=== PATIENT | male | born 1935 | race Asian ===

== ENCOUNTER 2016-11-03 14:31 | Inpatient (IN) | payer MEDICARE, OTHER ==
[~2016-11-03] VITALS: Ht 165.1 cm; Wt 72.6 kg
[~2016-11-03 14:31] MED LIST: AMLO5TAB4 PO; CRES10 PO; ESOM40CA PO; FLUC100T39 PO; ISOS30TA5 PO; METO50TA16 PO; NIT4 SL; OLME40TA14 PO; RANO500T2 PO; TICA90TA PO
[2016-11-03] MEDS ORDERED: SOD CHLORIDE 0.9% 1,000 ML IV STA (15:18)
[2016-11-03 15:35] LABS: BASOPHIL # 0.1 10^3/ul (0.0-0.1); BASOPHILS % 1.1 % (0.0-2.0); EOSINOPHILS # 0.2 10^3/ul (0.0-0.5); EOSINOPHILS % 4.7 % (0.0-7.0); HEMATOCRIT 32.1 % (42.0-52.0); HEMOGLOBIN 11.5 g/dl (14.0-18.0); LYMPHOCYTES # 0.7 10^3/ul (0.8-2.9); LYMPHOCYTES % 14.2 % (15.0-51.0); MEAN CORPUSCULAR HEMOGLOBIN 33.3 pg (29.0-33.0); MEAN CORPUSCULAR HGB CONC 35.8 g/dl (32.0-37.0); MEAN PLATELET VOLUME 9.4 fl (7.4-10.4); MONOCYTE # 0.5 10^3/ul (0.3-0.9); MONOCYTES % 11.6 % (0.0-11.0); NEUTROPHIL # 3.2 10^3/ul (1.6-7.5); PLATELET COUNT 205 10^3/UL (140-415); RED BLOOD COUNT 3.45 10^6/ul (4.70-6.10); RED CELL DISTRIBUTION WIDTH 14.3 % (11.5-14.5); WHITE BLOOD COUNT 4.6 10^3/ul (4.8-10.8)
[2016-11-03 15:52] LABS: INR 1.12; PARTIAL THROMBOPLASTIN TIME 28.3 Sec (25.0-35.0); PROTIME 14.4 Sec (12.2-14.2); PT RATIO 1.1
--- NOTE | 2016-11-03 15:52 | RADRPT ---
PROCEDURE: XR Chest. CLINICAL INDICATION: Shortness of breath. Syncope TECHNIQUE: A single portable view of the chest was obtained. COMPARISON: 11/02/2015 FINDINGS: A prior median sternotomy is again seen. The aortic knob is unfolded. The aorta is tortuous and ath erosclerotic. The cardiomediastinal silhouette is otherwise within normal limits. Ill-defined opaci ty in the right lower lung zone is once again seen and is unchanged. The remaining lungs and pleural spaces are clear. The soft tissues and osseous structures demonstrate benign age related senescent changes. IMPRESSION: 1. Stable ill-defined opacity in the right lower lung zone. 2. Otherwise, no acute cardiopulmonary disease. RPTAT: HPNM Physician Ashutosh Date Time Electronically viewed and signed by Isra Hdz Physician on 11/03/2016 15:51 /
[2016-11-03 15:56] LABS: ANION GAP 16 (8-16); BLOOD UREA NITROGEN 33 mg/dl (7-20); CARBON DIOXIDE 25 mmol/L (21-31); CHLORIDE 94 mmol/L (97-110); CREATININE 1.25 mg/dl (0.61-1.24); GLUCOSE 114 mg/dl (70-220); SODIUM 129 mmol/L (135-144)
[2016-11-03 15:58] LABS: POTASSIUM 5.7 mmol/L (3.5-5.1)
[2016-11-03 16:13] LABS: TROPONIN-I < 0.012 ng/ml (0.00-0.12)
--- NOTE | 2016-11-03 16:16 | RADRPT ---
PROCEDURE: CT Head without. CLINICAL INDICATION: Syncope. TECHNIQUE: The study was performed utilizing a multi-slice, multidetector CT scanner. Direct spira l 1 mm axial sections were obtained through the head without the use of intravenous contrast materia l. 1 or more of the following dose reduction techniques were utilized: Automated exposure control, adjustment of the mA and/or kV according to patient's size, iterative reconstruction technique. Co blanca and sagittal reformations were obtained. The images were reviewed on a PACS workstation. RADIATION DOSE: CTDIvol: 44.1 mGyDLP: 720.2 mGy-cm COMPARISON: No prior studies are available for comparison. FINDINGS: There is no intracranial hemorrhage, extra-axial fluid collection, mass lesion, midline shift or hyd rocephalus. There are benign calcifications in the bilateral basal ganglia. There is mild to moder ate prominence of the cerebral sulci, lateral and third ventricles. There is mild to moderate periv entricular and subcortical white matter hypodensity. There is mild arteriosclerotic calcification o f the parasellar internal carotid arteries. The montero-white matter differentiation is preserved. Th e basal cisterns are patent. The midline structures are intact. The orbits, calvarium and extracra nial soft tissues are normal in appearance. The visualized paranasal sinuses, mastoid air cells and middle ear cavities are normally aerated. IMPRESSION: 1. No acute intracranial abnormality. No intracranial hemorrhage, extra-axial fluid collection, ma ss lesion or hydrocephalous. 2. Mild to moderate peripheral and central cerebral volume loss. 3. 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 RPTAT: HGAS .Manuel Mcclendon MD, MD Date Time Electronically viewed and signed by .Manuel Mcclendon MD, MD on 11/03/2016 16:15 .S/
[2016-11-03] MEDS ORDERED: ALBUTEROL 0.5% (NEB) 2.5 MG/0.5 ML AMP INH STA (16:28)
[2016-11-03] MEDS ORDERED: INSULIN REGULAR, HUMAN 100 UNIT/1 ML 3ML VIAL IV STA (16:28)
[2016-11-03] MEDS ORDERED: FUROSEMIDE 40 MG INJ IV STA (16:28)
[2016-11-03] MEDS ORDERED: NA POLYST SULFON 15 GM/60 ML BTL PO STA (16:28)
[2016-11-03] MEDS ORDERED: DEXTROSE 50% 50 ML SYRINGE IV PRN (16:30)
[2016-11-03] MEDS ORDERED: OLME40TA14 PO (17:09)
[2016-11-03] MEDS ORDERED: TICA90TA PO (17:12)
[2016-11-03] MEDS ORDERED: METO25TA7 PO (17:14)
[2016-11-03] MEDS ORDERED: ASPI81TA50 PO (17:16)
[2016-11-03] MEDS ORDERED: ISOS30TA5 PO (17:16)
[2016-11-03] MEDS ORDERED: HYDR12.58 PO (17:18)
[2016-11-03] MEDS ORDERED: FER325 PO (17:18)
[2016-11-03] MEDS ORDERED: VITA400C15 PO (17:19)
[2016-11-03] MEDS ORDERED: CHOL200073 PO (17:20)
[2016-11-03] MEDS ORDERED: CALC-686 PO (17:21)
[2016-11-03] MEDS ORDERED: OMEG100016 PO (17:23)
[2016-11-03] MEDS ORDERED: ASC500 PO (17:24)
[2016-11-03] MEDS ORDERED: MULT-861 PO (17:28)
[2016-11-03] MEDS ORDERED: ACETAMINOPHEN 325 MG TAB PO PRN ×2 (17:30→19:00)
[2016-11-03] MEDS ORDERED: ONDANSETRON 4 MG INJ IV PRN ×2 (17:30→19:00)
--- NOTE | 2016-11-03 18:32 | ERA ---
ER Documentation Chief Complaint Date/Time DATE: 11/03/16 TIME: 18:15 Chief Complaint dizziness since 1030 and states he had a syncopal episode at 1040 HPI 80-year-old male with a history of coronary artery disease status post NM, CABG , stents presenting after a syncopal episode that happened around 10:40 AM today. He states that he was feeling dizzy, got out of bed, and had a syncopal episode where he completely lost consciousness. He does state that he hit the back of his head. He denies any associated chest pain, shortness of breath, palpitations, or preceding headache. Currently he denies any new headache. He has no vision disturbance or dizziness at rest. He has no chest pain or shortness of breath at this time either. His primary care doctor is Dr. Hopkins. His horticultural agent is Dr. Cee. He was here 1 year ago for similar symptoms. ROS All systems reviewed and are negative except as per history of present illness. Medications Home Meds Reported Medications Multivits,Ca,Min/Iron/FA/Lycop (Centrum Men's Tablet) 1 Each Tablet, 1 EACH PO DAILY, TAB 11/03/16 Ascorbic Acid (Vitamin C) 500 Mg Tab, 500 MG PO DAILY, TAB 11/03/16 Auburn-3 Fatty Acids (Auburn-3) 1,000 Mg Capsule, 1000 MG PO DAILY, CAP 11/03/16 Calcium Carbonate/Vitamin D3 (Calcium 500 mg Chewable Tablet) 1 Each Tab.chew, 1 EACH PO DAILY, TAB.CHEW 11/03/16 Cholecalciferol (Vitamin D3) (VITAMIN D-3) 2,000 Unit Capsule, 2000 UNIT PO DAILY, CAP 11/03/16 Vitamin E* (Vitamin E*) 400 Unit Capsule, 400 UNIT PO DAILY, CAP 11/03/16 Ferrous Sulfate* (Ferrous Sulfate*) 325 Mg Tabec, 325 MG PO DAILY, TAB 11/03/16 Hydrochlorothiazide* (Hydrochlorothiazide*) 12.5 Mg Tablet, 12.5 MG PO DAILY, # 30 TAB 11/03/16 Aspirin (Aspir-Low) 81 Mg Tablet.dr, 81 MG PO DAILY 11/03/16 Isosorbide Mononitrate* (Isosorbide Mononitrate*) 30 Mg Tab.er.24h, 30 MG PO DAILY, TAB 11/03/16 Metoprolol Succinate* (Toprol XL*) 25 Mg Tab.sr.24h, 25 MG PO DAILY, #30 TAB CHECK IF SBP TOO HIGH TAKE 50MG DAILY 11/03/16 Ticagrelor* (Brilinta*) 90 Mg Tablet, 90 MG PO Q12, TAB BUT AT 11/02/16-MD CHANGED ON 60MG-BID(NOT STARTED) 11/03/16 Olmesartan Medoxomil (Benicar) 40 Mg Tablet, 40 MG PO DAILY, #30 TAB BUT AT 11/02/16-MD CHANGED ON 20MG-BID(NOT STARTED) 11/03/16 Nitroglycerin* (Nitrostat*) 0.4 Mg Tab.subl, 0.4 MG SL Q5MIN Y for CHEST PAIN, BOTTLE 11/02/15 Esomeprazole Mag Trihydrate (Nexium) 40 Mg Capsule.dr, 40 MG PO DAILY, #30 CAP 11/02/15 Rosuvastatin Calcium* (Crestor*) 10 Mg Tablet, 10 MG PO QHS, #30 TAB 11/02/15 Ranolazine* (Ranexa*) 500 Mg Tab.sr.12h, 500 MG PO Q12, TAB 11/02/15 Amlodipine Besylate* (Norvasc*) 5 Mg Tablet, 5 MG PO DAILY, TAB CHECK IF BPS NOT TOO HIGH TAKE 1/2TAB-(2.5MG) DAILY 11/02/15 Discontinued Reported Medications Fluconazole* (Fluconazole*) 100 Mg Tablet, 100 MG PO DAILY, TAB 11/03/15 Olmesartan Medoxomil (Benicar) 40 Mg Tablet, 40 MG PO DAILY, #30 TAB 11/02/15 Metoprolol Succinate* (Toprol XL*) 50 Mg Tab.er.24h, 50 MG PO DAILY, #30 TAB 11/02/15 Discontinued Scripts Ticagrelor* (Brilinta*) 90 Mg Tablet, 90 MG PO BID for 30 Days, #90 TAB Prov:ANGUS FRASER MD 11/07/15 Isosorbide Mononitrate* (Isosorbide Mononitrate*) 30 Mg Tab.er.24h, 30 MG PO DAILY for 30 Days, #30 Prov:ANGUS FRASER MD 11/07/15 Allergies Allergies: Coded Allergies: No Known Allergy (Verified , 11/03/16) PMhx/Soc History of Surgery: Yes Anesthesia Reaction: No Hx Neurological Disorder: No Hx Respiratory Disorders: No Hx Cardiac Disorders: Yes (Heart attack 2000 Bypass Sx 1999, stents 2006) Hx Psychiatric Problems: No Hx Miscellaneous Medical Probl: No Hx Alcohol Use: No Hx Substance Use: No Hx Tobacco Use: No Smoking Status: Never smoker FmHx Family History: No diabetes Physical Exam Vitals Vital Signs Date Time Temp Pulse Resp B/P Pulse Ox O2 Delivery O2 Flow Rate FiO2 11/03/16 20:11 97.2 74 18 91/49 98 Room Air 11/03/16 18:20 97.6 84 20 121/71 99 Room Air 11/03/16 17:09 75 20 100 21 11/03/16 15:51 65 108/57 69 102/55 67 97/58 11/03/16 15:45 87 20 102/55 99 Room Air 11/03/16 14:34 97.6 68 20 107/55 98 Physical Exam Const: Well-appearing, pleasant, no apparent distress, nontoxic Head: Atraumatic, no scalp hematomas or skull depression palpated Eyes: Normal Conjunctiva, PERRLA, EOMI ENT: Normal External Ears, Nose and Mouth. Neck: Full range of motion..~ No meningismus. No C-spine tenderness Resp: Clear to auscultation bilaterally Cardio: Sternotomy scar noted. Regular rate and rhythm, no murmurs. 2+ distal pulses Abd: Soft, non tender, non distended. Normal bowel sounds Skin: No petechiae or rashes Back: No midline or flank tenderness Ext: No cyanosis, or edema Neur: Awake and alert and oriented 3, cranial nerves intact, strength and sensations intact in all 4 extremities Psych: Normal Mood and Affect Result Diagram: 11/03/16 1525 11/03/16 1525 Results 24 hrs Laboratory Tests Test 11/03/16 15:25 11/03/16 16:47 11/03/16 17:20 White Blood Count 4.610^3/ul Red Blood Count 3.4510^6/ul Hemoglobin 11.5g/dl Hematocrit 32.1% Mean Corpuscular Volume 93.0fl Mean Corpuscular Hemoglobin 33.3pg Mean Corpuscular Hemoglobin Concent 35.8g/dl Red Cell Distribution Width 14.3% Platelet Count 52426^3/UL Mean Platelet Volume 9.4fl Neutrophils % 68.0% Lymphocytes % 14.2% Monocytes % 11.6% Eosinophils % 4.7% Basophils % 1.1% Nucleated Red Blood Cells % 0.0/100WBC Neutrophils # 3.210^3/ul Lymphocytes # 0.710^3/ul Monocytes # 0.510^3/ul Eosinophils # 0.210^3/ul Basophils # 0.110^3/ul Nucleated Red Blood Cells # 0.010^3/ul Prothrombin Time 14.4Sec Prothrombin Time Ratio 1.1 INR International Normalized Ratio 1.12 Activated Partial Thromboplast Time 28.3Sec Sodium Level 129mmol/L Potassium Level 5.7mmol/L Chloride Level 94mmol/L Carbon Dioxide Level 25mmol/L Anion Gap 16 Blood Urea Nitrogen 33mg/dl Creatinine 1.25mg/dl Glucose Level 114mg/dl Calcium Level 9.0mg/dl Troponin I < 0.012ng/ml Bedside Glucose 104mg/dL 161mg/dL Current Medications Medications (Trade) Dose Ordered Sig/Tanya Route PRN Reason Start Time Stop Time Status Last Admin Dose Admin Sodium Chloride (NS) 1,000 ml @ 1,000 mls/hr Q1H STAT IV 11/03/16 15:18 11/03/16 16:17 DC 11/03/16 16:40 Furosemide (Lasix) 40 mg ONCE STAT IV 11/03/16 16:28 11/03/16 16:30 DC 11/03/16 16:43 Sodium Polystyrene Sulfonate (Kayexalate) 30 gm ONCE STAT PO 11/03/16 16:28 11/03/16 16:30 DC 11/03/16 16:43 Albuterol (Proventil 0.5% (Neb)) 15 mg ONCE STAT INH 11/03/16 16:28 11/03/16 16:30 DC 11/03/16 17:09 Insulin Human Regular (Humulin R) 10 unit ONCE STAT IV 11/03/16 16:28 11/03/16 16:30 DC 11/03/16 16:52 Dextrose (D50w Syringe) ONCE PRN IV POC BLOOD GLUCOSE <250 MG/DL 11/03/16 16:30 11/03/16 16:44 Ondansetron HCl (Zofran Inj) 4 mg ER BRIDGE PRN IV NAUSEA AND/OR VOMITING 11/03/16 17:30 11/04/16 17:29 Acetaminophen (Tylenol Tab) 650 mg ER BRIDGE PRN PO MILD PAIN/FEVER 11/03/16 17:30 11/04/16 17:29 Aspirin (Halfprin) 81 mg DAILY PO 11/04/16 09:00 Cholecalciferol (Vitamin D) 2,000 unit DAILY PO 11/04/16 09:00 UNV Ferrous Sulfate (Ferrous Sulfate (Ec)) 325 mg DAILY PO 11/04/16 09:00 Isosorbide Mononitrate (Imdur) 30 mg DAILY PO 11/04/16 09:00 UNV Metoprolol Succinate (Toprol Xl) 25 mg DAILY PO 11/04/16 09:00 Nitroglycerin (Nitroglycerin (Sl Tab) 0.4 Mg) 0.4 tab [id number] PRN SL CHEST PAIN 11/03/16 19:00 Ranolazine (Ranexa) 500 mg Q12 PO 11/03/16 21:00 UNV Ticagrelor (Brilinta) 90 mg Q12 PO 11/03/16 21:00 UNV Vitamin E (Vitamin E) 400 units DAILY PO 11/04/16 09:00 UNV IV Flush (NS 3 ml) 3 ml PER PROTOCOL IV 11/03/16 19:00 Ondansetron HCl (Zofran Inj) 4 mg Q6H PRN IV NAUSEA AND/OR VOMITING 11/03/16 19:00 Acetaminophen (Tylenol Tab) 650 mg Q6H PRN PO PAIN LEVEL 1-3 OR FEVER 11/03/16 19:00 Acetaminophen (Tylenol Supp) 650 mg Q6H PRN DE PAIN LEVEL 1-3 OR FEVER 11/03/16 19:00 Docusate Sodium (Colace) 100 mg Q12H PRN PO CONSTIPATION 11/03/16 19:00 Magnesium Hydroxide (Milk Of Mag) 30 ml DAILY PRN PO CONSTIPATION 11/03/16 19:00 Bisacodyl (Dulcolax) 5 mg DAILY PRN PO CONSTIPATION 11/03/16 19:00 Pantoprazole 40 mg 40 mg DAILY@06 IV 11/04/16 06:00 Sodium Chloride (NS) 1,000 ml @ 50 mls/hr Q20H IV 11/03/16 19:00 11/03/16 19:26 Procedures/MDM EMERGENT LABS AND DIAGNOSTIC STUDIES: Lab Results above were reviewed and interpreted by me. CBC: Mild anemia BMP: Hyponatremia, hyperkalemia, elevated BUN and creatinine consistent with prerenal azotemia Troponin within normal limits UA: Pending 12-lead EKG was interpreted by Tyrel Kurtz MD: Normal Sinus Rhythm Right bundle branch block, old inferior infarct No acute ST or T wave changes suggestive of acute ischemia or STEMI. Radiology Results as interpreted by Radiology below were reviewed by Mariaa Kurtz MD: Chest x-ray: IMPRESSION: 1. Stable ill-defined opacity in the right lower lung zone. 2. Otherwise, no acute cardiopulmonary disease. Physician Ashutosh Date Time Electronically viewed and signed by Physician Ashutosh on 11/03/2016 15 :51 CT head shows no acute abnormalities Initial Nursing notes reviewed. Previous Medical Records requested via the Electronic Health Record. EMERGENCY DEPARTMENT COURSE / MEDICAL DECISION MAKING: Patient presenting after a syncopal episode. His labs are consistent with prerenal azotemia but he also has hyperkalemia. His hyperkalemia was treated with insulin, glucose, albuterol, Kayexalate and Lasix. 1 L of IV fluids were started. No arrhythmias seen on his EKG. However I cannot rule out a significant intermittent arrhythmia, acute coronary syndrome. patient's syncopal symptoms are unstable at this time and require inpatient workup. No evidence of PE or dissection at this time but occult ischemia or fatal dysrhythmia cannot be ruled out. Critical Care Time: 35 minutes Treatments/Evaluations: Close monitoring and treatment of unstable vital signs, cardiorespiratory, and neurologic status, while maintaining tight balance of fluid, respiratory, and cardiac interventions. This time includes discussing the case with the patient and the patients family. This time does not include all procedures stated elsewhere in this record. This time also includes reviewing old records, labs and radiological studies. This time includes examining and re-examining the patient. Additionally, this time also includes arranging care with admitting and consulting physicians. Accepting Care Team: Current data and ongoing care discussed. Time: Time of admission Primary Provider: Spoke with Sandeep, requested admission to Dr. Jj Reed Consulting: none Outstanding Data: none Departure Diagnosis: Primary Impression: Syncope and collapse Additional Impressions: Blunt head injury Qualified Code: S09.8XXA - Blunt head injury, initial encounter Acute renal failure Qualified Code: N17.9 - Acute renal failure, unspecified acute renal failure type Hyperkalemia Hyponatremia Condition: Serious SAVANNAH KURTZ MD Nov 03, 2016 18:26
--- NOTE | 2016-11-03 18:38 | QN ---
Documentation Comment [id number] DIRK SIMMONS MD Nov 03, 2016 18:38
[2016-11-03] MEDS ORDERED: NITROGLYCERIN (SL) 0.4 MG TAB SL PRN (19:00)
[2016-11-03] MEDS ORDERED: MAGNESIUM HYDROXIDE 30ML CUP PO PRN (19:00)
[2016-11-03] MEDS ORDERED: DOCUSATE SODIUM 100 MG CAP PO PRN (19:00)
[2016-11-03] MEDS ORDERED: NACL 0.9% 3 ML SYG IV SCH (19:00)
[2016-11-03] MEDS ORDERED: BISACODYL (EC) 5 MG TAB PO PRN (19:00)
[2016-11-03] MEDS ORDERED: ACETAMINOPHEN 650 MG SUPP PR PRN (19:00)
[2016-11-03] MEDS: SOD CHLORIDE 0.9% 1,000 ML IV SCH (19:26)
[2016-11-03 20:00] VITALS: BP 112/56; RESP 15
[2016-11-03 20:11] VITALS: TEMP 97.2
[2016-11-03 20:27] LABS: CREATINE KINASE 217 IU/L (23-200)
[2016-11-03 20:44] LABS: CK-MB 3.42 ng/ml (0.0-2.4); TROPONIN-I < 0.012 ng/ml (0.00-0.12)
[2016-11-03 20:45] VITALS: PULSE 68
[2016-11-03 20:58] VITALS: Ht 165.1 cm; Wt 72.6 kg
[2016-11-03] MEDS: RANOLAZINE (SR) 500 MG TAB PO SCH (21:00)
[2016-11-03] MEDS: TICAGRELOR 90 MG TABLET PO SCH (21:57)
[2016-11-04] VITALS (14 sets, daily range): BP systolic 91–138; BP diastolic 52–69; PULSE 58–70; RESP 15–19
[2016-11-04 01:21] LABS: CREATINE KINASE 176 IU/L (23-200)
[2016-11-04 01:38] LABS: CK-MB 2.59 ng/ml (0.0-2.4); TROPONIN-I < 0.012 ng/ml (0.00-0.12)
[2016-11-04] MEDS: PANTOPRAZOLE 40 MG INJ IV SCH (05:56)
[2016-11-04 07:06] LABS: BASOPHILS % 0.6 % (0.0-2.0); EOSINOPHILS # 0.2 10^3/ul (0.0-0.5); EOSINOPHILS % 3.3 % (0.0-7.0); HEMATOCRIT 33.4 % (42.0-52.0); HEMOGLOBIN 11.7 g/dl (14.0-18.0); LYMPHOCYTES # 0.8 10^3/ul (0.8-2.9); LYMPHOCYTES % 12.5 % (15.0-51.0); MEAN CORPUSCULAR HEMOGLOBIN 32.2 pg (29.0-33.0); MEAN PLATELET VOLUME 10.2 fl (7.4-10.4); MONOCYTE # 0.6 10^3/ul (0.3-0.9); MONOCYTES % 8.5 % (0.0-11.0); PLATELET COUNT 221 10^3/UL (140-415); RED BLOOD COUNT 3.63 10^6/ul (4.70-6.10); WHITE BLOOD COUNT 6.7 10^3/ul (4.8-10.8)
[2016-11-04 07:26] LABS: CHOL/HDL RATIO 2.2 RATIO
[2016-11-04 07:27] LABS: ALBUMIN/GLOBULIN RATIO 1.33; BILIRUBIN,INDIRECT 0.4 mg/dl (0-1.1); BILIRUBIN,TOTAL 0.4 mg/dl (0.2-1.3); CALCIUM 8.8 mg/dl (8.4-10.2); CREATININE 0.86 mg/dl (0.61-1.24); POTASSIUM 4.2 mmol/L (3.5-5.1)
[2016-11-04] MEDS: RANOLAZINE (SR) 500 MG TAB PO SCH ×2 (10:12→20:54)
[2016-11-04] MEDS: VITAMIN E 400 UNITS CAP PO SCH (10:12)
[2016-11-04] MEDS: FERROUS SULFATE (EC) 325 MG TAB PO SCH (10:12)
[2016-11-04] MEDS: CHOLECALCIFEROL 2,000 UNIT CAP PO SCH (10:12)
[2016-11-04] MEDS: ASPIRIN (EC) 81 MG TAB PO SCH (10:12)
[2016-11-04] MEDS: METOPROLOL (XL) 25 MG TAB PO SCH (10:13)
[2016-11-04] MEDS: ISOSORBIDE MONONITRATE(SR)30 MG TAB PO SCH (10:13)
[2016-11-04] MEDS: TICAGRELOR 90 MG TABLET PO SCH ×2 (10:19→20:57)
--- NOTE | 2016-11-04 10:55 | PN ---
Date/Time of Note Date/Time of Note DATE: 11/04/16 TIME: 10:52 Assessment/Plan VTE Prophylaxis VTE Prophylaxis Intervention: SCD's Lines/Catheters IV Catheter Type (from Nrs): Peripheral IV Urinary Cath still in place: No Assessment/Plan Chief Complaint/Hosp Course 1. Syncope 2. S/p fall with loss of conciseness. 3. Hypertension, controlled 4. Hyperlipidemia 5. S/p heart [id number] and stent placement Problems: Assessment/Plan 1. Dr Cee for cardiology consult 2. US carotid 3. Thyroid work up Subjective 24 Hr Interval Summary Constitutional: improved, no complaints Exam/Review of Systems Vital Signs Vitals Vital Signs Date Time Temp Pulse Resp B/P Pulse Ox O2 Delivery O2 Flow Rate FiO2 11/04/16 08:23 63 11/04/16 08:02 98.0 16 123/64 96 11/03/16 20:11 Room Air 11/03/16 17:09 21 Intake and Output 11/03/16 11/03/16 11/04/16 15:00 23:00 07:00 Intake Total 511 ml Output Total 600 ml Balance -89 ml Exam Constitutional: alert, oriented ENMT: nl external ears & nose, other (left carotid bruit) Neck: supple Respiratory: clear to auscultation Cardiovascular: regular rate and rhythm Gastrointestinal: soft Results Result Diagram: 11/04/16 0605 11/04/16 0605 Results 24 hrs Laboratory Tests Test 11/03/16 15:25 11/03/16 16:47 11/03/16 17:20 11/03/16 19:55 White Blood Count 4.6 #L Red Blood Count 3.45 #L Hemoglobin 11.5 L Hematocrit 32.1 #L Mean Corpuscular Volume 93.0 Mean Corpuscular Hemoglobin 33.3 H Mean Corpuscular Hemoglobin Concent 35.8 Red Cell Distribution Width 14.3 Platelet Count 205 Mean Platelet Volume 9.4 # Neutrophils % 68.0 Lymphocytes % 14.2 L Monocytes % 11.6 H Eosinophils % 4.7 Basophils % 1.1 Nucleated Red Blood Cells % 0.0 Neutrophils # 3.2 Lymphocytes # 0.7 L Monocytes # 0.5 Eosinophils # 0.2 Basophils # 0.1 Nucleated Red Blood Cells # 0.0 Prothrombin Time 14.4 H Prothrombin Time Ratio 1.1 INR International Normalized Ratio 1.12 Activated Partial Thromboplast Time 28.3 Sodium Level 129 L Potassium Level 5.7 H Chloride Level 94 L Carbon Dioxide Level 25 Anion Gap 16 Blood Urea Nitrogen 33 H Creatinine 1.25 H Glucose Level 114 Calcium Level 9.0 Troponin I < 0.012 < 0.012 Bedside Glucose 104 161 Creatine Kinase 217 H Creatine Kinase Index 1.6 Creatinine Kinase MB (Mass) 3.42 H Test 11/04/16 00:45 11/04/16 06:05 Creatine Kinase 176 Creatine Kinase Index 1.5 Creatinine Kinase MB (Mass) 2.59 H Troponin I < 0.012 White Blood Count 6.7 # Red Blood Count 3.63 L Hemoglobin 11.7 L Hematocrit 33.4 L Mean Corpuscular Volume 92.0 Mean Corpuscular Hemoglobin 32.2 Mean Corpuscular Hemoglobin Concent 35.0 Red Cell Distribution Width 14.0 Platelet Count 221 Mean Platelet Volume 10.2 Neutrophils % 75.0 Lymphocytes % 12.5 L Monocytes % 8.5 Eosinophils % 3.3 Basophils % 0.6 Nucleated Red Blood Cells % 0.0 Neutrophils # 5.0 Lymphocytes # 0.8 Monocytes # 0.6 Eosinophils # 0.2 Basophils # 0.0 Nucleated Red Blood Cells # 0.0 Sodium Level 136 Potassium Level 4.2 Chloride Level 96 L Carbon Dioxide Level 29 Anion Gap 15 Blood Urea Nitrogen 22 #H Creatinine 0.86 Glucose Level 97 Calcium Level 8.8 Total Bilirubin 0.4 Direct Bilirubin 0.00 Indirect Bilirubin 0.4 Aspartate Amino Transf (AST/SGOT) 34 Alanine Aminotransferase (ALT/SGPT) 40 Alkaline Phosphatase 39 L Total Protein 7.0 Albumin 4.0 Globulin 3.00 Albumin/Globulin Ratio 1.33 Triglycerides Level 46 Cholesterol Level 110 LDL Cholesterol, Calculated 52 HDL Cholesterol 49 Cholesterol/HDL Ratio 2.2 Thyroid Stimulating Hormone (TSH) Pending Medications Medications Current Medications Dextrose (D50w Syringe) ONCE PRN IV POC BLOOD GLUCOSE <250 MG/DL Last administered on 11/03/16 16:44; Admin Dose 50 ML; Start 11/03/16 at 16:30 Aspirin (Halfprin) 81 mg DAILY PO Last administered on 11/04/16 10:12; Admin Dose 81 MG; Start 11/04/16 at 09:00 Cholecalciferol (Vitamin D) 2,000 unit DAILY PO Last administered on 11/04/16 10:12; Admin Dose 2,000 UNIT; Start 11/04/16 at 09:00 Ferrous Sulfate (Ferrous Sulfate (Ec)) 325 mg DAILY PO Last administered on 10:12; Admin Dose 325 MG; Start 11/04/16 at 09:00 Isosorbide Mononitrate (Imdur) 30 mg DAILY PO Last administered on 11/04/16 10 :13; Admin Dose 30 MG; Start 11/04/16 at 09:00 Metoprolol Succinate (Toprol Xl) 25 mg DAILY PO Last administered on 11/04/16 10:13; Admin Dose 25 MG; Start 11/04/16 at 09:00 Nitroglycerin (Nitroglycerin (Sl Tab) 0.4 Mg) 0.4 tab [id number] PRN SL CHEST PAIN; Start 11/03/16 at 19:00 Ranolazine (Ranexa) 500 mg Q12 PO Last administered on 11/04/16 10:12; Admin Dose 500 MG; Start 11/03/16 at 21:00 Ticagrelor (Brilinta) 90 mg Q12 PO Last administered on 11/04/16 10:19; Admin Dose 90 MG; Start 11/03/16 at 21:00 Vitamin E (Vitamin E) 400 units DAILY PO Last administered on 11/04/16 10:12; Admin Dose 400 UNITS; Start 11/04/16 at 09:00 Ondansetron HCl (Zofran Inj) 4 mg Q6H PRN IV NAUSEA AND/OR VOMITING; Start at 19:00 Acetaminophen (Tylenol Tab) 650 mg Q6H PRN PO PAIN LEVEL 1-3 OR FEVER; Start at 19:00 Acetaminophen (Tylenol Supp) 650 mg Q6H PRN [place] PAIN LEVEL 1-3 OR FEVER; Start 11/03/16 at 19:00 Docusate Sodium (Colace) 100 mg Q12H PRN PO CONSTIPATION; Start 11/03/16 at 19: 00 Magnesium Hydroxide (Milk Of Mag) 30 ml DAILY PRN PO CONSTIPATION; Start at 19:00 Bisacodyl (Dulcolax) 5 mg DAILY PRN PO CONSTIPATION; Start 11/03/16 at 19:00 Pantoprazole 40 mg 40 mg DAILY@06 IV Last administered on 11/04/16 05:56; Admin Dose 40 MG; Start 11/04/16 at 06:00 Sodium Chloride (NS) 1,000 ml @ 50 mls/hr Q20H IV Last administered on 19:26; Admin Dose 50 MLS/HR; Start 11/03/16 at 19:00 USAMA BORJA Nov 04, 2016 10:55
--- NOTE | 2016-11-04 13:05 | RADRPT ---
PROCEDURE: US Abdomen and Retroperitoneum. CLINICAL INDICATION: Abdominal pain. TECHNIQUE: Multiple real-time longitudinal and transverse images were acquired of the patient's ab domen and retroperitoneum utilizing a curved array transducer. COMPARISON: No prior studies are available for comparison. FINDINGS: The liver is normal in size and normal in echogenicity. The liver has a normal smooth surface. Ther e is no focal hepatic lesion. Color Doppler and pulsed Doppler sonography demonstrate normal antegra de flow in the portal vein. Gallstones are present in the gallbladder. There is no gallbladder wall thickening or fluid around the gallbladder. The bile ducts are normal with the common bile duct measuring 6.5 mm in diameter. The spleen is normal in size. There is no focal splenic lesion. The pancreas is partially seen and is unremarkable. There is no free fluid. The right kidney measures 11.7 x 4.9 cm and the left kidney measures 11.0 x 5 point a cm. There is no renal mass. There is no hydronephrosis or calculus. The abdominal aorta is not dilated. The inferior vena cava is unremarkable. IMPRESSION: 1. Gallstones in the gallbladder. No evidence of cholecystitis. 2. Otherwise normal ultrasound of the abdomen and retroperitoneum. RPTAT: QQ .Jorge Frank MD, Date Time Electronically viewed and signed by .Jorge Frank MD, on 11/04/2016 13:04 .R/
--- NOTE | 2016-11-04 13:38 | CONS ---
DATE OF ADMISSION: 11/03/2016 DATE OF CONSULTATION: 11/04/2016 REASON FOR CONSULTATION: Syncope. HISTORY OF PRESENT ILLNESS: Mr. Menchaca is a 80-year-old gentleman, a patient of Dr. Cee, who comes to the hospital now for evaluation of a syncopal episode. The patient was seen by Dr. Cee two days prior. Apparently he was hypotensive, according to the patient. His beta-kaye dose was reduced. The patient had a syncopal episode while walking the day prior with trauma. The patient has right bundle branch block on his ECG with borderline first-degree AV block. He said he has had syncopal episodes prior. It is possible beta-blockers are related. For now, we will continue to keep the patient in telemetry. He is going to have a 2D echo to assess ejection fraction. I think it might be reasonable to risk stratify patient with a stress test to rule out scar or there might be consideration for pacemaker placement unless otherwise etiology is ascertained. For now, conservative therapy is expected. We will continue to optimize the patient's fluid status and risk stratify him as noted. PAST MEDICAL HISTORY: 1. History of hypertension. 2. Dyslipidemia. 3. History of coronary artery disease. 4. History of CABG. 5. History of prior stenting. 6. Syncopal episodes about a year ago. 7. History of erratic blood pressure. ALLERGIES: NO KNOWN DRUG ALLERGIES. SOCIAL HISTORY: The patient does not smoke, does not drink, does not use drugs FAMILY HISTORY: Negative for sudden cardiac or premature coronary artery disease. MEDICATION: 1. Aspirin 81 mg daily. 2. Vitamin D. 3. Isosorbide mononitrate 30 mg p.o. once a day. 4. Metoprolol 25 mg two times a day. 5. Long-acting Ranexa 500 mg twice a day. 6. Nitroglycerin. 7. Docusate bisacodyl. REVIEW OF SYSTEMS: GENERAL: No fever or chills. Syncope as described. HEENT: No issues. CARDIAC: No chest pain, orthopnea. RESPIRATORY: No shortness of breath. GASTROINTESTINAL: No nausea or vomiting. GENITOURINARY: No hematuria or dysuria. . NEUROLOGICAL: No issues reviewed. PSYCHIATRIC: No known history of psychiatric disease. LABORATORY: White blood count 6.7, hemoglobin 11.7, platelets 221. INR is 1.2. Sodium 136, potassium 4.2, BUN 22. Troponin is negative at 0.012. CK-MB is slightly elevated to 2.59. ASSESSMENT AND PLAN:: 1. Syncope. Syncopal episodes are still unexplained. For now, continue patient on telemetry. Had some pauses up to 1.7 seconds. Also right bundle branch block. Conservative care is . Decrease his beta-kaye dose for now. 2. History of coronary artery disease. The patient has history of coronary artery disease. The patient's troponin is negative but CK-MB is slightly elevated. Will likely stratify the patient with a stress test while he is here in the hospital. 3. Hypertension. Blood pressure well controlled. Continue medical therapy as needed. 4. Dyslipidemia. Will continue patient on Crestor. 5. Right bundle branch block now with syncope. Continue 24- hour monitoring. At least 2D echo to follow. Thank you Dr. Reed for referring this patient for my evaluation. Dictated By: Zhen Valenzuela MD /angel/stalin /Document#: [id number]
[2016-11-04] MEDS: SOD CHLORIDE 0.9% 1,000 ML IV SCH (15:08)
--- NOTE | 2016-11-04 15:59 | RADRPT ---
PROCEDURE: US Carotids. CLINICAL INDICATION: bruit , syncope TECHNIQUE: Multiple sonographic of the carotid bifurcation region and vertebral arteries were obta ined utilizing montero scale, duplex and color-flow imaging. The images were reviewed on a PACS worksta tion. COMPARISON: 11/04/2015 FINDINGS: Evaluation of the right carotid bifurcation region reveals mild calcific atherosclerotic disease. Evaluation of the left carotid bifurcation region reveals no significant calcific atherosclerotic di sease. There is antegrade flow within the vertebral arteries bilaterally. RIGHT CAROTID MEASUREMENTS: Common Carotid [id number] (cm/sec) Internal Carotid Artery - gakwddpi82.2 (cm/sec) Internal Carotid Artery - mid60.4 (cm/sec) Internal Carotid Artery - tvhtah00.9 (cm/sec) Internal Carotid/Common Carotid0.57 LEFT CAROTID MEASUREMENTS: Common Carotid [id number] (cm/sec) Internal Carotid Artery - infcfsdy27.9 (cm/sec) Internal Carotid Artery - mid55.8 (cm/sec) Internal Carotid Artery - kfaome26.6 (cm/sec) Internal Carotid/Common Carotid0.81 RPTAT: AA IMPRESSION: No evidence for hemodynamically significant stenosis in the bilateral internal carotid arteries - va lidated velocity measurements with angiographic measurements, velocity criteria are extrapolated fro m diameter data as defined by the Society of Radiologists in Ultrasound Consensus Conference Radiolo gy 2003; 229;340-346. This study does indirectly reference the measurement of the distal ICA diamet er as the denominator for stenosis measurement. Normal antegrade flow in the vertebral arteries bilaterally. .Dc Fernando MD, MD Date Time Electronically viewed and signed by .Dc Fernando MD, on 11/04/2016 15:59 .S/
--- NOTE | 2016-11-04 17:29 | CONS ---
Date/Time of Note Date/Time of Note DATE: 11/04/16 TIME: 17:21 Assessment/Plan Assessment/Plan Chief Complaint/Hosp Course ASOx3, fluent speech, CN II-XII intact perrl 2-1, motor int, sensory diminished vibration in toes, coord OK. Blandon hallpike maneuver (-), except lightheadedness when briskly sat up, DTR 2+ absent ankle jerks, no babinski A/P S/p orthostatic dizziness and syncope. Dehydration. Card on case. Distal symmetrical polyneuropathy. Orthostatic vitals. Cont current treatment Problems: Consultation Date/Type/Reason Admit Date/Time Nov 03, 2016 at 17:22 Type of Consultation: neurology Reason for Consultation syncope, dizziness Hx of Present Illness 80 y/o male with CAD, HTN chronic usually orthostatic dizziness for several years, was admitted after orthostatic syncope at home, fell, hit his head. No pain now. Found to be dehydrated. Similar syncope 1 year ago, that time had VT Constitutional: improved, no complaints ENT: no complaints Respiratory: no complaints Cardiovascular: lightheadedness Gastrointestinal: no complaints Genitourinary: no complaints Psychological: no complaints Past Medical History Medical History: coronary artery disease, high cholesterol, hypertension Past Surgical History Past Surgical Hx: angioplasty, coronary bypass surgery Social History Alcohol Use: none Smoking Status: Never smoker Drug Use: none Exam/Review of Systems Vital Signs Vitals Vital Signs Date Time Temp Pulse Resp B/P Pulse Ox O2 Delivery O2 Flow Rate FiO2 11/04/16 16:18 61 11/04/16 15:36 98.6 19 99/58 98 11/03/16 20:11 Room Air 11/03/16 17:09 21 Intake and Output 11/03/16 11/03/16 11/04/16 15:00 23:00 07:00 Intake Total 511 ml Output Total 600 ml Balance -89 ml Exam Constitutional: alert, oriented, well developed Head: atraumatic, normocephalic Neck: non-tender, supple Respiratory: clear to auscultation Cardiovascular: nl pulses, regular rate and rhythm Gastrointestinal: soft Musculoskeletal: nl extremities to inspection Results Result Diagram: 11/04/16 0605 11/04/16 0605 Results 24 hrs Laboratory Tests Test 11/03/16 19:55 11/04/16 00:45 11/04/16 06:05 Creatine Kinase 217 H 176 Creatine Kinase Index 1.6 1.5 Creatinine Kinase MB (Mass) 3.42 H 2.59 H Troponin I < 0.012 < 0.012 White Blood Count 6.7 # Red Blood Count 3.63 L Hemoglobin 11.7 L Hematocrit 33.4 L Mean Corpuscular Volume 92.0 Mean Corpuscular Hemoglobin 32.2 Mean Corpuscular Hemoglobin Concent 35.0 Red Cell Distribution Width 14.0 Platelet Count 221 Mean Platelet Volume 10.2 Neutrophils % 75.0 Lymphocytes % 12.5 L Monocytes % 8.5 Eosinophils % 3.3 Basophils % 0.6 Nucleated Red Blood Cells % 0.0 Neutrophils # 5.0 Lymphocytes # 0.8 Monocytes # 0.6 Eosinophils # 0.2 Basophils # 0.0 Nucleated Red Blood Cells # 0.0 Sodium Level 136 Potassium Level 4.2 Chloride Level 96 L Carbon Dioxide Level 29 Anion Gap 15 Blood Urea Nitrogen 22 #H Creatinine 0.86 Glucose Level 97 Calcium Level 8.8 Total Bilirubin 0.4 Direct Bilirubin 0.00 Indirect Bilirubin 0.4 Aspartate Amino Transf (AST/SGOT) 34 Alanine Aminotransferase (ALT/SGPT) 40 Alkaline Phosphatase 39 L Total Protein 7.0 Albumin 4.0 Globulin 3.00 Albumin/Globulin Ratio 1.33 Triglycerides Level 46 Cholesterol Level 110 LDL Cholesterol, Calculated 52 HDL Cholesterol 49 Cholesterol/HDL Ratio 2.2 Thyroid Stimulating Hormone (TSH) Pending Medications Medications Current Medications Dextrose (D50w Syringe) ONCE PRN IV POC BLOOD GLUCOSE <250 MG/DL Last administered on 11/03/16 16:44; Admin Dose 50 ML; Start 11/03/16 at 16:30 Aspirin (Halfprin) 81 mg DAILY PO Last administered on 11/04/16 10:12; Admin Dose 81 MG; Start 11/04/16 at 09:00 Cholecalciferol (Vitamin D) 2,000 unit DAILY PO Last administered on 11/04/16 10:12; Admin Dose 2,000 UNIT; Start 11/04/16 at 09:00 Ferrous Sulfate (Ferrous Sulfate (Ec)) 325 mg DAILY PO Last administered on 10:12; Admin Dose 325 MG; Start 11/04/16 at 09:00 Isosorbide Mononitrate (Imdur) 30 mg DAILY PO Last administered on 11/04/16 10 :13; Admin Dose 30 MG; Start 11/04/16 at 09:00 Metoprolol Succinate (Toprol Xl) 25 mg DAILY PO Last administered on 11/04/16 10:13; Admin Dose 25 MG; Start 11/04/16 at 09:00 Nitroglycerin (Nitroglycerin (Sl Tab) 0.4 Mg) 0.4 tab [id number] PRN SL CHEST PAIN; Start 11/03/16 at 19:00 Ranolazine (Ranexa) 500 mg Q12 PO Last administered on 11/04/16 10:12; Admin Dose 500 MG; Start 11/03/16 at 21:00 Ticagrelor (Brilinta) 90 mg Q12 PO Last administered on 11/04/16 10:19; Admin Dose 90 MG; Start 11/03/16 at 21:00 Vitamin E (Vitamin E) 400 units DAILY PO Last administered on 11/04/16 10:12; Admin Dose 400 UNITS; Start 11/04/16 at 09:00 Ondansetron HCl (Zofran Inj) 4 mg Q6H PRN IV NAUSEA AND/OR VOMITING; Start at 19:00 Acetaminophen (Tylenol Tab) 650 mg Q6H PRN [place] PAIN LEVEL 1-3 OR FEVER; Start at 19:00 Acetaminophen (Tylenol Supp) 650 mg Q6H PRN [place] PAIN LEVEL 1-3 OR FEVER; Start 11/03/16 at 19:00 Docusate Sodium (Colace) 100 mg Q12H PRN PO CONSTIPATION; Start 11/03/16 at 19: 00 Magnesium Hydroxide (Milk Of Mag) 30 ml DAILY PRN PO CONSTIPATION; Start at 19:00 Bisacodyl (Dulcolax) 5 mg DAILY PRN PO CONSTIPATION; Start 11/03/16 at 19:00 Pantoprazole 40 mg 40 mg DAILY@06 IV Last administered on 11/04/16 05:56; Admin Dose 40 MG; Start 11/04/16 at 06:00 Sodium Chloride (NS) 1,000 ml @ 50 mls/hr Q20H IV Last administered on 15:08; Admin Dose 50 MLS/HR; Start 11/03/16 at 19:00 ROGER ARANDA MD 29, 2017 17:29
[2016-11-04] MEDS: ATORVASTATIN 40 MG TAB PO SCH (20:54)
[2016-11-04] MEDS ORDERED: TICAGRELOR 90 MG TABLET PO SCH (21:00)
[2016-11-05] VITALS (11 sets, daily range): BP systolic 122–180; BP diastolic 61–91; PULSE 56–75; RESP 19–20
[2016-11-05] MEDS: PANTOPRAZOLE 40 MG INJ IV SCH (05:13)
[2016-11-05 06:07] LABS: BASOPHILS % 0.7 % (0.0-2.0); EOSINOPHILS # 0.4 10^3/ul (0.0-0.5); EOSINOPHILS % 6.5 % (0.0-7.0); HEMOGLOBIN 12.1 g/dl (14.0-18.0); LYMPHOCYTES # 1.1 10^3/ul (0.8-2.9); LYMPHOCYTES % 19.8 % (15.0-51.0); MEAN CORPUSCULAR HEMOGLOBIN 31.8 pg (29.0-33.0); MEAN CORPUSCULAR HGB CONC 34.6 g/dl (32.0-37.0); MEAN CORPUSCULAR VOLUME 91.9 fl (82.0-101.0); MEAN PLATELET VOLUME 9.5 fl (7.4-10.4); MONOCYTE # 0.6 10^3/ul (0.3-0.9); MONOCYTES % 10.4 % (0.0-11.0); NEUTROPHIL # 3.4 10^3/ul (1.6-7.5); NEUTROPHILS % 62.4 % (39.0-77.0); PLATELET COUNT 209 10^3/UL (140-415); RED BLOOD COUNT 3.81 10^6/ul (4.70-6.10); WHITE BLOOD COUNT 5.4 10^3/ul (4.8-10.8)
[2016-11-05 06:34] LABS: ALBUMIN 3.9 g/dl (3.3-4.9); ALBUMIN/GLOBULIN RATIO 1.25; BILIRUBIN,INDIRECT 0.8 mg/dl (0-1.1); BILIRUBIN,TOTAL 0.8 mg/dl (0.2-1.3); CALCIUM 9.2 mg/dl (8.4-10.2); CREATININE 0.8 mg/dl (0.61-1.24); POTASSIUM 4.3 mmol/L (3.5-5.1)
[2016-11-05] MEDS: METOPROLOL (XL) 25 MG TAB PO SCH (09:00)
[2016-11-05] MEDS: CHOLECALCIFEROL 2,000 UNIT CAP PO SCH (09:11)
[2016-11-05] MEDS: ASPIRIN (EC) 81 MG TAB PO SCH (09:11)
[2016-11-05] MEDS: VITAMIN E 400 UNITS CAP PO SCH (09:12)
[2016-11-05] MEDS: FERROUS SULFATE (EC) 325 MG TAB PO SCH (09:12)
[2016-11-05] MEDS: ISOSORBIDE MONONITRATE(SR)30 MG TAB PO SCH (09:12)
[2016-11-05] MEDS: TICAGRELOR 90 MG TABLET PO SCH ×2 (09:22→20:51)
[2016-11-05] MEDS: RANOLAZINE (SR) 500 MG TAB PO SCH ×2 (09:49→20:50)
[2016-11-05] MEDS: SOD CHLORIDE 0.9% 1,000 ML IV SCH (11:00)
--- NOTE | 2016-11-05 12:07 | PN ---
Date/Time of Note Date/Time of Note DATE: 11/05/16 TIME: 12:05 Assessment/Plan VTE Prophylaxis VTE Prophylaxis Intervention: ambulation Lines/Catheters IV Catheter Type (from [facility]): Peripheral IV Urinary Cath still in place: No Assessment/Plan Chief Complaint/Hosp Course 1. Syncope possibly due RBBB 2. S/p fall with loss of conciseness. 3. Hypertension, controlled 4. Hyperlipidemia 5. S/p heart cath 2013 and stent placement 6. CAD 7 Problems: Assessment/Plan 1. Per cardiology 2. Normalization erratic BP 3. Telemonitoring Subjective 24 Hr Interval Summary Constitutional: improved, no complaints Gastrointestinal: no complaints Exam/Review of Systems Vital Signs Vitals Vital Signs Date Time Temp Pulse Resp B/P Pulse Ox O2 Delivery O2 Flow Rate FiO2 11/05/16 11:36 98.0 58 19 159/72 97 11/03/16 20:11 Room Air 11/03/16 17:09 21 Intake and Output 11/04/16 11/04/16 11/05/16 15:00 23:00 07:00 Intake Total 400 ml 950 ml 850 ml Output Total 800 ml Balance 400 ml 950 ml 50 ml Exam Constitutional: alert, oriented Neck: supple Respiratory: clear to auscultation Cardiovascular: regular rate and rhythm Results Result Diagram: 11/05/16 0541 11/05/16 0541 Results 24 hrs Laboratory Tests Test 11/05/16 05:41 White Blood Count 5.4 Red Blood Count 3.81 L Hemoglobin 12.1 L Hematocrit 35.0 L Mean Corpuscular Volume 91.9 Mean Corpuscular Hemoglobin 31.8 Mean Corpuscular Hemoglobin Concent 34.6 Red Cell Distribution Width 14.0 Platelet Count 209 Mean Platelet Volume 9.5 Neutrophils % 62.4 Lymphocytes % 19.8 Monocytes % 10.4 Eosinophils % 6.5 Basophils % 0.7 Nucleated Red Blood Cells % 0.0 Neutrophils # 3.4 Lymphocytes # 1.1 Monocytes # 0.6 Eosinophils # 0.4 Basophils # 0.0 Nucleated Red Blood Cells # 0.0 Sodium Level 134 L Potassium Level 4.3 Chloride Level 95 L Carbon Dioxide Level 27 Anion Gap 16 Blood Urea Nitrogen 13 # Creatinine 0.80 Glucose Level 93 Calcium Level 9.2 Total Bilirubin 0.8 Direct Bilirubin 0.00 Indirect Bilirubin 0.8 Aspartate Amino Transf (AST/SGOT) 32 Alanine Aminotransferase (ALT/SGPT) 43 Alkaline Phosphatase 38 L Total Protein 7.0 Albumin 3.9 Globulin 3.10 Albumin/Globulin Ratio 1.25 Medications Medications Current Medications Dextrose (D50w Syringe) ONCE PRN IV POC BLOOD GLUCOSE <250 MG/DL Last administered on 11/03/16 16:44; Admin Dose 50 ML; Start 11/03/16 at 16:30 Aspirin (Halfprin) 81 mg DAILY PO Last administered on 11/05/16 09:11; Admin Dose 81 MG; Start 11/04/16 at 09:00 Cholecalciferol (Vitamin D) 2,000 unit DAILY PO Last administered on 11/05/16 09:11; Admin Dose 2,000 UNIT; Start 11/04/16 at 09:00 Ferrous Sulfate (Ferrous Sulfate (Ec)) 325 mg DAILY PO Last administered on 09:12; Admin Dose 325 MG; Start 11/04/16 at 09:00 Isosorbide Mononitrate (Imdur) 30 mg DAILY PO Last administered on 11/05/16 09 :12; Admin Dose 30 MG; Start 11/04/16 at 09:00 Metoprolol Succinate (Toprol Xl) 25 mg DAILY PO Last administered on 11/04/16 10:13; Admin Dose 25 MG; Start 11/04/16 at 09:00 Nitroglycerin (Nitroglycerin (Sl Tab) 0.4 Mg) 0.4 tab [id number] PRN SL CHEST PAIN; Start 11/03/16 at 19:00 Ranolazine (Ranexa) 500 mg Q12 PO Last administered on 11/05/16 09:49; Admin Dose 500 MG; Start 11/03/16 at 21:00 Vitamin E (Vitamin E) 400 units DAILY PO Last administered on 11/05/16 09:12; Admin Dose 400 UNITS; Start 11/04/16 at 09:00 Ondansetron HCl (Zofran Inj) 4 mg Q6H PRN IV NAUSEA AND/OR VOMITING; Start at 19:00 Acetaminophen (Tylenol Tab) 650 mg Q6H PRN [place] PAIN LEVEL 1-3 OR FEVER; Start at 19:00 Acetaminophen (Tylenol Supp) 650 mg Q6H PRN [place] PAIN LEVEL 1-3 OR FEVER; Start 11/03/16 at 19:00 Docusate Sodium (Colace) 100 mg Q12H PRN PO CONSTIPATION; Start 11/03/16 at 19: 00 Magnesium Hydroxide (Milk Of Mag) 30 ml DAILY PRN PO CONSTIPATION; Start at 19:00 Bisacodyl (Dulcolax) 5 mg DAILY PRN PO CONSTIPATION; Start 11/03/16 at 19:00 Pantoprazole 40 mg 40 mg DAILY@06 IV Last administered on 11/05/16 05:13; Admin Dose 40 MG; Start 11/04/16 at 06:00 Sodium Chloride (NS) 1,000 ml @ 50 mls/hr Q20H IV Last administered on 15:08; Admin Dose 50 MLS/HR; Start 11/03/16 at 19:00 Atorvastatin Calcium (Lipitor) 40 mg DAILY@21 PO Last administered on 20:54; Admin Dose 40 MG; Start 11/04/16 at 21:00 Ticagrelor (Brilinta) 90 mg BID PO Last administered on 11/05/16 09:22; Admin Dose 90 MG; Start 11/04/16 at 21:00 USAMA BORJA Nov 05, 2016 12:07
--- NOTE | 2016-11-05 16:55 | CONS ---
Date/Time of Note Date/Time of Note DATE: 11/05/16 TIME: 16:52 Assessment/Plan Assessment/Plan Additional Assessment/Plan 1. Syncope - . Syncopal episodes are still unexplained. For now, continue patient on telemetry. Had some pauses up to 1.7 seconds. Also right bundle branch block. Conservative care is ok for now, but I did discuss possibility of pacer with pt. Will await stress test. 2. History of coronary artery disease. The patient has history of coronary artery disease. The patient's troponin is negative but CK-MB is slightly elevated. Will likely stratify the patient with a stress test while he is here in the hospital. Stress test tomorrow - NPO past midnight except meds. 3. Hypertension. Blood pressure well controlled. Continue medical therapy as needed. BETTER 4. Dyslipidemia. Will continue patient on Crestor. 5. Right bundle branch block now with syncope. Continue 24- hour monitoring. At least 2D echo to follow. Consultation Date/Type/Reason Admit Date/Time Nov 03, 2016 at 17:22 Initial Consult Date Type of Consultation: neurology 24 HR Interval Summary Free Text/Dictation Conservative care is ok for now, but I did discuss possibility of pacer with pt. Will await stress test. ROS: No fever, no chills, no nausea, no vomiting, no diarrhea/constipation + DIZZY, but better No recent weight changes No chest pain, no PND, no orthopnea No dizziness, blurred vision No thirst, no heat or cold intolerance Exam/Review of Systems Vital Signs Vitals Vital Signs Date Time Temp Pulse Resp B/P Pulse Ox O2 Delivery O2 Flow Rate FiO2 11/05/16 16:25 59 145/72 64 140/75 66 150/81 11/05/16 15:32 98.4 19 97 11/03/16 20:11 Room Air 11/03/16 17:09 21 Intake and Output 11/04/16 11/04/16 11/05/16 15:00 23:00 07:00 Intake Total 400 ml 950 ml 850 ml Output Total 800 ml Balance 400 ml 950 ml 50 ml Exam General: WN/WD/NAD, AO x 3 HEENT: Unicetric/atraumatic/EOMI (follows commands) NECK: JVD elevated, no thyromegaly Lymph: no lymphadenopathy HEART: regular with no S3, II/ systolic murmur at apex LUNGS: Coarse sounds ABD: soft, NT, ND, +BS : Intact Neuro: non focal SKIN: chronic changes EXT: trace edema Results Result Diagram: 11/05/1641 11/05/1641 Results 24 hrs Laboratory Tests Test 11/05/16 05:41 White Blood Count 5.4 Red Blood Count 3.81 L Hemoglobin 12.1 L Hematocrit 35.0 L Mean Corpuscular Volume 91.9 Mean Corpuscular Hemoglobin 31.8 Mean Corpuscular Hemoglobin Concent 34.6 Red Cell Distribution Width 14.0 Platelet Count 209 Mean Platelet Volume 9.5 Neutrophils % 62.4 Lymphocytes % 19.8 Monocytes % 10.4 Eosinophils % 6.5 Basophils % 0.7 Nucleated Red Blood Cells % 0.0 Neutrophils # 3.4 Lymphocytes # 1.1 Monocytes # 0.6 Eosinophils # 0.4 Basophils # 0.0 Nucleated Red Blood Cells # 0.0 Sodium Level 134 L Potassium Level 4.3 Chloride Level 95 L Carbon Dioxide Level 27 Anion Gap 16 Blood Urea Nitrogen 13 # Creatinine 0.80 Glucose Level 93 Calcium Level 9.2 Total Bilirubin 0.8 Direct Bilirubin 0.00 Indirect Bilirubin 0.8 Aspartate Amino Transf (AST/SGOT) 32 Alanine Aminotransferase (ALT/SGPT) 43 Alkaline Phosphatase 38 L Total Protein 7.0 Albumin 3.9 Globulin 3.10 Albumin/Globulin Ratio 1.25 Medications Medications Current Medications Dextrose (D50w Syringe) ONCE PRN IV POC BLOOD GLUCOSE <250 MG/DL Last administered on 11/03/16 16:44; Admin Dose 50 ML; Start 11/03/16 at 16:30 Aspirin (Halfprin) 81 mg DAILY PO Last administered on 11/05/16 09:11; Admin Dose 81 MG; Start 11/04/16 at 09:00 Cholecalciferol (Vitamin D) 2,000 unit DAILY PO Last administered on 11/05/16 09:11; Admin Dose 2,000 UNIT; Start 11/04/16 at 09:00 Ferrous Sulfate (Ferrous Sulfate (Ec)) 325 mg DAILY PO Last administered on 09:12; Admin Dose 325 MG; Start 11/04/16 at 09:00 Isosorbide Mononitrate (Imdur) 30 mg DAILY PO Last administered on 11/05/16 09 :12; Admin Dose 30 MG; Start 11/04/16 at 09:00 Metoprolol Succinate (Toprol Xl) 25 mg DAILY PO Last administered on 11/04/16 10:13; Admin Dose 25 MG; Start 11/04/16 at 09:00 Nitroglycerin (Nitroglycerin (Sl Tab) 0.4 Mg) 0.4 tab [id number] PRN SL CHEST PAIN; Start 11/03/16 at 19:00 Ranolazine (Ranexa) 500 mg Q12 PO Last administered on 11/05/16 09:49; Admin Dose 500 MG; Start 11/03/16 at 21:00 Vitamin E (Vitamin E) 400 units DAILY PO Last administered on 11/05/16 09:12; Admin Dose 400 UNITS; Start 11/04/16 at 09:00 Ondansetron HCl (Zofran Inj) 4 mg Q6H PRN IV NAUSEA AND/OR VOMITING; Start at 19:00 Acetaminophen (Tylenol Tab) 650 mg Q6H PRN PO PAIN LEVEL 1-3 OR FEVER; Start at 19:00 Acetaminophen (Tylenol Supp) 650 mg Q6H PRN [place] PAIN LEVEL 1-3 OR FEVER; Start 11/03/16 at 19:00 Docusate Sodium (Colace) 100 mg Q12H PRN PO CONSTIPATION; Start 11/03/16 at 19: 00 Magnesium Hydroxide (Milk Of Mag) 30 ml DAILY PRN PO CONSTIPATION; Start at 19:00 Bisacodyl (Dulcolax) 5 mg DAILY PRN PO CONSTIPATION; Start 11/03/16 at 19:00 Pantoprazole (Protonix Iv) 40 mg DAILY@06 IV Last administered on 11/05/16 05: 13; Admin Dose 40 MG; Start 11/04/16 at 06:00 Atorvastatin Calcium (Lipitor) 40 mg DAILY@21 PO Last administered on 20:54; Admin Dose 40 MG; Start 11/04/16 at 21:00 Ticagrelor (Brilinta) 90 mg BID PO Last administered on 11/05/16 09:22; Admin Dose 90 MG; Start 11/04/16 at 21:00 ROB HAMLIN MD Nov 05, 2016 16:55
--- NOTE | 2016-11-05 18:27 | RADRPT ---
Echocardiogram Report Patient Name: STEPHANIE WORTHY Gender: Male Date: 1935 Study Date: 04-Nov-2016 Operations Research Analyst: [facility] Location: 6 Ref. Physician: DIRK SIMMONS Quality: Adequate Procedures: Transthoracic echocardiogram with complete 2D, M-Mode, and doppler examination. Indications: Coronary Artery Disease. 2D/M Mode Doppler Measurement Value Normal Ranges Measurement Value Normal Ranges LVIDd 2D 4.4 3.5 - 5.6 cm AV Peak Conrado 1.1 m/sec LVIDs 2D 3.1 2.1 - 4.1 cm AV Peak PG 5.0 mmHg FS 2D 31.0 % LVOT Peak Conrado 0.8 m/sec LVPWd 2D 1.3 0.6 - 1.1 cm LVOT Peak PG 2.0 mmHg IVSd 2D 1.5 0.6 - 1.1 cm MV E Peak Conrado 0.8 m/sec IVS/LVPW 2D 1.1 MV A Peak Conrado 1.0 m/sec AoR Diam 2D 3.7 2.0 - 3.7 cm MV E/A 0.8 LA/Ao 2D 1 0 - 1 MV Decel Time 204 msec EDV 2D 88.1 cm3 MV E/A 0.8 ESV 2D 28.9 cm3 TR Peak Conrado 2.3 m/sec LA Dimen 2D 3.4 2.3 - 4.0 cm TR Peak PG 21.0 mmHg RVSP 24.0 mmHg Findings Left Ventricle: Normal left ventricular systolic function. Normal left ventricular cavity size. Mild asymmetric septal hypertrophy. Ejection fraction is visually estimated at 55 %. Abnormal Diastolic Function. Right Ventricle: Normal right ventricular size. Normal right ventricular systolic function. Left Atrium: The left atrium is normal in size. Right Atrium: The right atrium is normal in size. Mitral Valve: Mild mitral leaflet calcification. Mild mitral annular calcification. Trace mitral regurgitation. Aortic Valve: Normal appearance of the aortic valve. No significant aortic stenosis or insufficiency. Tricuspid Valve: Normal appearance of the tricuspid valve. Estimated peak PA systolic pressure 24 mmHg. There is trace tricuspid regurgitation. Pulmonic Valve: Pulmonic valve not well visualized. There is mild pulmonic regurgitation. Pericardium: Normal pericardium with no significant pericardial effusion. Aorta: Normal aortic root. IVC: Normal size and normal respiratory collapse consistent with normal right atrial pressure. Conclusions 1.Normal left ventricular systolic function. Normal left ventricular cavity size. Mild asymmetric septal hypertrophy. Ejection fraction is visually estimated at 55 %. Abnormal Diastolic Function. 2.Mild mitral leaflet calcification. Mild mitral annular calcification. Trace mitral regurgitation. 3.Normal appearance of the aortic valve. No significant aortic stenosis or insufficiency. 4.Normal appearance of the tricuspid valve. Estimated peak PA systolic pressure 24 mmHg. There is trace tricuspid regurgitation. Electronically Signed By: Zhen Valenzuela 05-Nov-2016 18:26:55 -0700 Patient Name: STEPHANIE WORTHY Study Date: 04-Nov-2016 [id number]
[2016-11-05] MEDS: ATORVASTATIN 40 MG TAB PO SCH (20:52)
[2016-11-06] VITALS (13 sets, daily range): BP systolic 97–154; BP diastolic 56–77; PULSE 60–78; RESP 18–19
[2016-11-06] MEDS: PANTOPRAZOLE 40 MG INJ IV SCH (06:00)
[2016-11-06] MEDS: RANOLAZINE (SR) 500 MG TAB PO SCH ×2 (08:58→21:43)
[2016-11-06] MEDS: ASPIRIN (EC) 81 MG TAB PO SCH (08:58)
[2016-11-06] MEDS: VITAMIN E 400 UNITS CAP PO SCH (08:58)
[2016-11-06] MEDS: CHOLECALCIFEROL 2,000 UNIT CAP PO SCH (08:59)
[2016-11-06] MEDS: METOPROLOL (XL) 25 MG TAB PO SCH (08:59)
[2016-11-06] MEDS: FERROUS SULFATE (EC) 325 MG TAB PO SCH (08:59)
[2016-11-06] MEDS: ISOSORBIDE MONONITRATE(SR)30 MG TAB PO SCH (08:59)
[2016-11-06] MEDS: TICAGRELOR 90 MG TABLET PO SCH ×2 (09:20→21:45)
[2016-11-06 10:03] LABS: THYROID STIMULATING HORMONE 3.39 MIU/L (0.465-4.680)
[2016-11-06] MEDS ORDERED: REGADENOSON 0.4 MG/5 ML SYG ONE (11:45)
--- NOTE | 2016-11-06 11:45 | CONS ---
Date/Time of Note Date/Time of Note DATE: 11/06/16 TIME: 11:37 Assessment/Plan Assessment/Plan Chief Complaint/Hosp Course IMP: 1. Syncope-proceeded by dizziness ? arrythmic 2.Hotn-currently improved 3.BRadycardia-to 50's thus far with evidence of conduction system disorder 4.cad s/p cabg 5. H/O PTCA/stent placement 10/22 with BRUCE to LCX ReccL: -Tele -serial ecg's -Continue BB and imdur -Continue asa/PLavix/statin -Lexiscan stress test Problems: Consultation Date/Type/Reason Admit Date/Time Nov 03, 2016 at 17:22 Initial Consult Date 11/03/2016 Type of Consultation: cardiology Reason for Consultation syncope Referring Provider: DIRK SIMMONS MD Exam/Review of Systems Vital Signs Vitals Vital Signs Date Time Temp Pulse Resp B/P Pulse Ox O2 Delivery O2 Flow Rate FiO2 11/06/16 11:08 97.9 61 18 150/73 98 11/03/16 20:11 Room Air 11/03/16 17:09 21 Intake and Output 11/05/16 11/05/16 11/06/16 15:00 23:00 07:00 Intake Total 300 ml 800 ml 750 ml Output Total 850 ml Balance 300 ml 800 ml -100 ml Exam Review of Systems: CONSTITUTIONAL: No fevers, chills. PULMONARY: No sob CARDIOVASCULAR: No chest pain/palpitations GASTROINTESTINAL: No nausea/vomiting. GENITOURINARY: No hematuria/dysuria. MUSCULOSKELETAL: No myagias/arthalgias. PSYCHIATRIC: The patient denies depression. NEUROLOGIC: No weakness Constitutional: alert Psych: no complaints Head: normocephalic ENMT: mucosa pink and moist Neck: jvd (9 cm water), supple Respiratory: diminished breath sounds (at bases/B) Cardiovascular: regular rate and rhythm Gastrointestinal: non-tender, soft Musculoskeletal: muscle tone (normal) Extremities: edema (none) Neurological: other (NONe) Results Result Diagram: 11/05/16 0541 11/05/16 0541 Medications Medications Current Medications Dextrose (D50w Syringe) ONCE PRN IV POC BLOOD GLUCOSE <250 MG/DL Last administered on 11/03/16t 16:44; Admin Dose 50 ML; Start 11/03/16 at 16:30 Aspirin (Halfprin) 81 mg DAILY PO Last administered on 11/06/16 08:58; Admin Dose 81 MG; Start 11/04/16 at 09:00 Cholecalciferol (Vitamin D) 2,000 unit DAILY PO Last administered on 11/06/16 08:59; Admin Dose 2,000 UNIT; Start 11/04/16 at 09:00 Ferrous Sulfate (Ferrous Sulfate (Ec)) 325 mg DAILY PO Last administered on 08:59; Admin Dose 325 MG; Start 11/04/16 at 09:00 Isosorbide Mononitrate (Imdur) 30 mg DAILY PO Last administered on 11/06/16 08 :59; Admin Dose 30 MG; Start 11/04/16 at 09:00 Metoprolol Succinate (Toprol Xl) 25 mg DAILY PO Last administered on 11/06/16 08:59; Admin Dose 25 MG; Start 11/04/16 at 09:00 Nitroglycerin (Nitroglycerin (Sl Tab) 0.4 Mg) 0.4 tab [id number] PRN SL CHEST PAIN; Start 11/03/16 at 19:00 Ranolazine (Ranexa) 500 mg Q12 PO Last administered on 11/06/16 08:58; Admin Dose 500 MG; Start 11/03/16 at 21:00 Vitamin E (Vitamin E) 400 units DAILY PO Last administered on 11/06/16 08:58; Admin Dose 400 UNITS; Start 11/04/16 at 09:00 Ondansetron HCl (Zofran Inj) 4 mg Q6H PRN IV NAUSEA AND/OR VOMITING; Start at 19:00 Acetaminophen (Tylenol Tab) 650 mg Q6H PRN PO PAIN LEVEL 1-3 OR FEVER; Start at 19:00 Acetaminophen (Tylenol Supp) 650 mg Q6H PRN [place] PAIN LEVEL 1-3 OR FEVER; Start 11/03/16 at 19:00 Docusate Sodium (Colace) 100 mg Q12H PRN PO CONSTIPATION; Start 11/03/16 at 19: 00 Magnesium Hydroxide (Milk Of Mag) 30 ml DAILY PRN PO CONSTIPATION; Start at 19:00 Bisacodyl (Dulcolax) 5 mg DAILY PRN PO CONSTIPATION; Start 11/03/16 at 19:00 Pantoprazole (Protonix Iv) 40 mg DAILY@06 IV Last administered on 11/06/16 06: 00; Admin Dose 40 MG; Start 11/04/16 at 06:00 Atorvastatin Calcium (Lipitor) 40 mg DAILY@21 PO Last administered on 20:52; Admin Dose 40 MG; Start 11/04/16 at 21:00 Ticagrelor (Brilinta) 90 mg BID PO Last administered on 11/06/16 09:20; Admin Dose 90 MG; Start 11/04/16 at 21:00 MICHAEL WEINER Nov 06, 2016 11:45
--- NOTE | 2016-11-06 13:41 | RADRPT ---
PROCEDURE: Lexiscan myocardial perfusion study CLINICAL INDICATION: 80 -year-old patient with coronary artery disease, status post stent placemen t and CABG, with syncope, complaining of chest pain. TECHNIQUE: Lexiscan 0.4 mg intravenously separate acquisition gated myocardial perfusion SPECT usi ng Tc 99m Myoview 28.7 mCi intravenously at stress and Tc-99m Myoview, 9.5 mCi intravenously at rest was performed using the rest/stress sequence. Poststress Myoview SPECT images were obtained in the supine position. COMPARISON: November 04, 2015. FINDINGS: Perfusion images reveal a a small to moderate size mild to moderate in degree predominantly nonrever sible perfusion defect in the inferior and inferolateral alvarado. Lexiscan post stress gated SPECT images demonstrate no wall motion abnormalities. IMPRESSION: 1. The type and distribution of the scintigraphic abnormalities are most consistent with a small to moderate size predominantly nonreversible perfusion defect in the inferior and inferolateral alvarado. 2. No new wall motion abnormalities. 3. The left ventricle ejection fraction at stress is 63% (prior EF was 57%) A call report was made to Dr. Cee at 01:40 p.m. on November 06, 2016. RPTAT: HH .Kellee Quiroz MD, MD Date Time Electronically viewed and signed by .Kellee Quiroz MD, MD on 11/06/2016 13:41 .L/
[2016-11-06] MEDS: MECLIZINE 12.5 MG TAB PO SCH ×2 (17:17→21:43)
[2016-11-06] MEDS: MIDODRINE 2.5 MG TAB PO SCH (17:18)
--- NOTE | 2016-11-06 17:56 | PN ---
Date/Time of Note Date/Time of Note DATE: 11/06/16 TIME: 17:54 Assessment/Plan VTE Prophylaxis VTE Prophylaxis Intervention: other Lines/Catheters [facility]from [facility] Saline Lock Urinary Cath still in place: No Assessment/Plan Chief Complaint/Hosp Course SYNCOPE CAD S/P YENNY VERTIGO ORTHOSATIC BP PLAN LABS PROAMANTINE Problems: Subjective 24 Hr Interval Summary Subjective hx not possible: other (DIZZINESS AND ORTHOSTATIC BP NOTED) Respiratory: no complaints Cardiovascular: no complaints Exam/Review of Systems Vital Signs Vitals Vital Signs Date Time Temp Pulse Resp B/P Pulse Ox O2 Delivery O2 Flow Rate FiO2 11/06/16 17:18 69 97/56 11/06/16 16:04 97.9 18 97 Room Air 11/03/16 17:09 21 Intake and Output 11/05/16 11/05/16 11/06/16 15:00 23:00 07:00 Intake Total 300 ml 800 ml 750 ml Output Total 850 ml Balance 300 ml 800 ml -100 ml Exam Neck: supple Respiratory: clear to auscultation Cardiovascular: regular rate and rhythm Gastrointestinal: soft Musculoskeletal: nl extremities to inspection 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 Results Result Diagram: 11/05/16 0541 11/05/16 0541 Medications Medications Current Medications Dextrose (D50w Syringe) ONCE PRN IV POC BLOOD GLUCOSE <250 MG/DL Last administered on 11/03/16 16:44; Admin Dose 50 ML; Start 11/03/16 at 16:30 Aspirin (Halfprin) 81 mg DAILY PO Last administered on 11/06/16 08:58; Admin Dose 81 MG; Start 11/04/16 at 09:00 Cholecalciferol (Vitamin D) 2,000 unit DAILY PO Last administered on 11/06/16 08:59; Admin Dose 2,000 UNIT; Start 11/04/16 at 09:00 Ferrous Sulfate (Ferrous Sulfate (Ec)) 325 mg DAILY PO Last administered on 08:59; Admin Dose 325 MG; Start 11/04/16 at 09:00 Isosorbide Mononitrate (Imdur) 30 mg DAILY PO Last administered on 11/06/16 08 :59; Admin Dose 30 MG; Start 11/04/16 at 09:00 Metoprolol Succinate (Toprol Xl) 25 mg DAILY PO Last administered on 11/06/16 08:59; Admin Dose 25 MG; Start 11/04/16 at 09:00 Nitroglycerin (Nitroglycerin (Sl Tab) 0.4 Mg) 0.4 tab [id number] PRN SL CHEST PAIN; Start 11/03/16 at 19:00 Ranolazine (Ranexa) 500 mg Q12 PO Last administered on 11/06/16 08:58; Admin Dose 500 MG; Start 11/03/16 at 21:00 Vitamin E (Vitamin E) 400 units DAILY PO Last administered on 11/06/16 08:58; Admin Dose 400 UNITS; Start 11/04/16 at 09:00 Ondansetron HCl (Zofran Inj) 4 mg Q6H PRN IV NAUSEA AND/OR VOMITING; Start at 19:00 Acetaminophen (Tylenol Tab) 650 mg Q6H PRN PO PAIN LEVEL 1-3 OR FEVER; Start at 19:00 Acetaminophen (Tylenol Supp) 650 mg Q6H PRN [place] PAIN LEVEL 1-3 OR FEVER; Start 11/03/16 at 19:00 Docusate Sodium (Colace) 100 mg Q12H PRN PO CONSTIPATION; Start 11/03/16 at 19: 00 Magnesium Hydroxide (Milk Of Mag) 30 ml DAILY PRN PO CONSTIPATION; Start at 19:00 Bisacodyl (Dulcolax) 5 mg DAILY PRN PO CONSTIPATION; Start 11/03/16 at 19:00 Pantoprazole (Protonix Iv) 40 mg DAILY@06 IV Last administered on 11/06/16 06: 00; Admin Dose 40 MG; Start 11/04/16 at 06:00 Atorvastatin Calcium (Lipitor) 40 mg DAILY@21 PO Last administered on 20:52; Admin Dose 40 MG; Start 11/04/16 at 21:00 Ticagrelor (Brilinta) 90 mg BID PO Last administered on 11/06/16 09:20; Admin Dose 90 MG; Start 11/04/16 at 21:00 Meclizine HCl (Antivert) 12.5 mg TID PO Last administered on 11/06/16 17:17; Admin Dose 12.5 MG; Start 11/06/16 at 21:00 Midodrine (Proamatine) 2.5 mg DAILY PO Last administered on 11/06/16t 17:18; Admin Dose 2.5 MG; Start 11/06/16 at 17:00 DIRK SIMMONS MD Nov 06, 2016 17:56
[2016-11-06] MEDS: ATORVASTATIN 40 MG TAB PO SCH (21:43)
[2016-11-07] VITALS (13 sets, daily range): BP systolic 112–136; BP diastolic 55–72; PULSE 58–68; RESP 16–20
[2016-11-07] MEDS: PANTOPRAZOLE 40 MG INJ IV SCH (06:10)
[2016-11-07 07:30] LABS: ALBUMIN 4.1 g/dl (3.3-4.9); ALBUMIN/GLOBULIN RATIO 1.2; BILIRUBIN,INDIRECT 0.6 mg/dl (0-1.1); BILIRUBIN,TOTAL 0.6 mg/dl (0.2-1.3); CALCIUM 9.5 mg/dl (8.4-10.2); CREATININE 0.84 mg/dl (0.61-1.24); POTASSIUM 4.7 mmol/L (3.5-5.1); TOTAL PROTEIN 7.5 g/dl (6.1-8.1)
--- NOTE | 2016-11-07 08:28 | CARRPT ---
DATE OF PROCEDURE: 11/06/2016 PROCEDURE: Lexiscan Cardiolite stress test. REASON FOR STRESS TESTING: Chest pain, syncope, and assess for ischemia. Abnormal electrocardiogram. BASELINE VITAL SIGNS: Pulse 60, blood pressure 148/76. CARDIOGRAM: Reveals normal sinus rhythm at a rate of 60 with a right bundle branch block secondary to pulsation abnormalities. PROCEDURE IN DETAIL: The patient was standard Lexiscan infused for about 10 seconds followed by [____]. The patient [____] per protocol. Maximum achieved blood pressure during test 91/54. Maximum heart rate during test 80. EKG FINDINGS: The patient had [____] Lexiscan induced [____] changes from baseline values. The patient [____] PAC. The patient had complaints of shortness of breath during stress test, resolved in recovery. No chest pain. IMPRESSION: 1. No Lexiscan induced [____] change from baseline [____], diagnostic or ischemia. 2. Complaints of shortness of breath during stress test, resolved in recovery. 3. No chest pain during stress test. 4. Reported [____] . Dictated By: Geraldine Barrios /amintat/rm /Document#: [id number] CC: Jj Reed MD;*[facility]*
[2016-11-07] MEDS: MIDODRINE 2.5 MG TAB PO SCH ×2 (09:00→16:51)
[2016-11-07] MEDS: TICAGRELOR 90 MG TABLET PO SCH ×2 (09:03→21:43)
[2016-11-07] MEDS: ISOSORBIDE MONONITRATE(SR)30 MG TAB PO SCH (09:03)
[2016-11-07] MEDS: VITAMIN E 400 UNITS CAP PO SCH (09:03)
[2016-11-07] MEDS: FERROUS SULFATE (EC) 325 MG TAB PO SCH (09:04)
[2016-11-07] MEDS: ASPIRIN (EC) 81 MG TAB PO SCH (09:04)
[2016-11-07] MEDS: METOPROLOL (XL) 25 MG TAB PO SCH (09:04)
[2016-11-07] MEDS: MECLIZINE 12.5 MG TAB PO SCH ×3 (09:04→21:42)
[2016-11-07] MEDS: RANOLAZINE (SR) 500 MG TAB PO SCH ×2 (09:04→21:42)
--- NOTE | 2016-11-07 12:50 | CONS ---
Date/Time of Note Date/Time of Note DATE: 11/07/16 TIME: 12:48 Assessment/Plan Assessment/Plan Additional Assessment/Plan 1. Syncope - . Syncopal episodes are still unexplained. For now, continue patient on telemetry. Had some pauses up to 1.7 seconds. Also right bundle branch block. Conservative care is ok for now, but I did discuss possibility of pacer with pt. Will await stress test. NOW IN SINUS - RATE INCREASED, will monitor clinically. 2. History of coronary artery disease. The patient has history of coronary artery disease. The patient's troponin is negative but CK-MB is slightly elevated. Will likely stratify the patient with a stress test while he is here in the hospital. Stress test done - dispo per DR. Cee. 3. Hypertension. Blood pressure well controlled. Continue medical therapy as needed. BETTER 4. Dyslipidemia. Will continue patient on Crestor. 5. Right bundle branch block now with syncope. Continue 24- hour monitoring. NO Pauses now. Consultation Date/Type/Reason Admit Date/Time Nov 03, 2016 at 17:22 Type of Consultation: cardiology Referring Provider: DIRK SIMMONS MD 24 HR Interval Summary Free Text/Dictation NOW IN SINUS - RATE INCREASED, will monitor clinically. ROS: No fever, no chills, no nausea, no vomiting, no diarrhea/constipation No recent weight changes No chest pain, no PND, no orthopnea No dizziness, blurred vision No thirst, no heat or cold intolerance Exam/Review of Systems Vital Signs Vitals Vital Signs Date Time Temp Pulse Resp B/P Pulse Ox O2 Delivery O2 Flow Rate FiO2 11/07/16 12:36 59 11/07/16 11:20 97.7 18 121/62 96 11/06/16 16:04 Room Air 11/03/16 17:09 21 Intake and Output 11/06/16 11/06/16 11/07/16 15:00 23:00 07:00 Intake Total 700 ml 400 ml Balance 700 ml 400 ml Exam General: WN/WD/NAD, AOx 3 Sinhala speaking HEENT: Unicetric/atraumatic/EOMI (follow commands) NECK: JVD elevated, no thyromegaly Lymph: no lymphadenopathy HEART: regular with no S3, II/ systolic murmur at apex LUNGS: Coarse sounds ABD: soft, NT, ND, +BS : Intact Neuro: non focal SKIN: chronic changes EXT: trace edema Results Result Diagram: 11/05/16 0541 11/07/16 0643 Results 24 hrs Laboratory Tests Test 11/07/16 06:43 Sodium Level 131 L Potassium Level 4.7 Chloride Level 90 L Carbon Dioxide Level 30 Anion Gap 16 Blood Urea Nitrogen 21 H Creatinine 0.84 Glucose Level 103 Calcium Level 9.5 Total Bilirubin 0.6 Direct Bilirubin 0.00 Indirect Bilirubin 0.6 Aspartate Amino Transf (AST/SGOT) 28 Alanine Aminotransferase (ALT/SGPT) 44 Alkaline Phosphatase 40 L Total Protein 7.5 Albumin 4.1 Globulin 3.40 H Albumin/Globulin Ratio 1.20 Medications Medications Current Medications Dextrose (D50w Syringe) ONCE PRN IV POC BLOOD GLUCOSE <250 MG/DL Last administered on 11/03/16 16:44; Admin Dose 50 ML; Start 11/03/16 at 16:30 Aspirin (Halfprin) 81 mg DAILY PO Last administered on 11/07/16 09:04; Admin Dose 81 MG; Start 11/04/16 at 09:00 Cholecalciferol (Vitamin D) 2,000 unit DAILY PO Last administered on 11/06/16 08:59; Admin Dose 2,000 UNIT; Start 11/04/16 at 09:00 Ferrous Sulfate (Ferrous Sulfate (Ec)) 325 mg DAILY PO Last administered on 11/07 09:04; Admin Dose 325 MG; Start 11/04/16 at 09:00 Isosorbide Mononitrate (Imdur) 30 mg DAILY PO Last administered on 11/07/16 09: 03; Admin Dose 30 MG; Start 11/04/16 at 09:00 Metoprolol Succinate (Toprol Xl) 25 mg DAILY PO Last administered on 11/07/16 09:04; Admin Dose 25 MG; Start 11/04/16 at 09:00 Nitroglycerin (Nitroglycerin (Sl Tab) 0.4 Mg) 0.4 tab [id number] PRN SL CHEST PAIN; Start 11/03/16 at 19:00 Ranolazine (Ranexa) 500 mg Q12 PO Last administered on 11/07/16 09:04; Admin Dose 500 MG; Start 11/03/16 at 21:00 Vitamin E (Vitamin E) 400 units DAILY PO Last administered on 11/07/16 09:03; Admin Dose 400 UNITS; Start 11/04/16 at 09:00 Ondansetron HCl (Zofran Inj) 4 mg Q6H PRN IV NAUSEA AND/OR VOMITING; Start at 19:00 Acetaminophen (Tylenol Tab) 650 mg Q6H PRN PO PAIN LEVEL 1-3 OR FEVER; Start at 19:00 Acetaminophen (Tylenol Supp) 650 mg Q6H PRN [place] PAIN LEVEL 1-3 OR FEVER; Start 11/03/16 at 19:00 Docusate Sodium (Colace) 100 mg Q12H PRN PO CONSTIPATION; Start 11/03/16 at 19: 00 Magnesium Hydroxide (Milk Of Mag) 30 ml DAILY PRN PO CONSTIPATION; Start at 19:00 Bisacodyl (Dulcolax) 5 mg DAILY PRN PO CONSTIPATION; Start 11/03/16 at 19:00 Pantoprazole (Protonix Iv) 40 mg DAILY@06 IV Last administered on 11/07/16 06: 10; Admin Dose 40 MG; Start 11/04/16 at 06:00 Atorvastatin Calcium (Lipitor) 40 mg DAILY@21 PO Last administered on 21:43; Admin Dose 40 MG; Start 11/04/16 at 21:00 Ticagrelor (Brilinta) 90 mg BID PO Last administered on 11/07/16 09:03; Admin Dose 90 MG; Start 11/04/16 at 21:00 Meclizine HCl (Antivert) 12.5 mg TID PO Last administered on 11/07/16 09:04; Admin Dose 12.5 MG; Start 11/06/16 at 21:00 Midodrine (Proamatine) 2.5 mg DAILY PO Last administered on 11/06/16 17:18; Admin Dose 2.5 MG; Start 11/06/16 at 17:00 ROB HAMLIN MD Nov 07, 2016 12:50
[2016-11-07] MEDS: CHOLECALCIFEROL 2,000 UNIT CAP PO SCH (15:27)
--- NOTE | 2016-11-07 17:13 | PN ---
Date/Time of Note Date/Time of Note DATE: 11/07/16 TIME: 17:08 Assessment/Plan VTE Prophylaxis VTE Prophylaxis Intervention: other Lines/Catheters IV [facility] Type (from [facility]): Saline Lock Urinary Cath still in place: No Assessment/Plan Chief Complaint/Hosp Course SYNCOPE BETTER CAD S/P YENNY VERTIGO ORTHOSATIC BP BETTER PLAN LABS PROAMANTINE DAILY Problems: Subjective 24 Hr Interval Summary Subjective hx not possible: other (DIZZINESS LITTLE BETTER) Exam/Review of Systems Vital Signs Vitals Vital Signs Date Time Temp Pulse Resp B/P Pulse Ox O2 Delivery O2 Flow Rate FiO2 11/07/16 16:53 68 11/07/16 15:37 97.8 18 127/58 97 11/06/16 16:04 Room Air 11/03/16 17:09 21 Intake and Output 11/06/16 11/06/16 11/07/16 15:00 23:00 07:00 Intake Total 700 ml 400 ml Balance 700 ml 400 ml Exam Constitutional: other (DIZZINESS BETTER) Respiratory: clear to auscultation Cardiovascular: regular rate and rhythm Gastrointestinal: soft Musculoskeletal: nl extremities to inspection Extremities: normal pulses Results Result Diagram: 11/05/16 0541 11/07/16 0643 Results 24 hrs Laboratory Tests Test 11/07/16 06:43 Sodium Level 131 L Potassium Level 4.7 Chloride Level 90 L Carbon Dioxide Level 30 Anion Gap 16 Blood Urea Nitrogen 21 H Creatinine 0.84 Glucose Level 103 Calcium Level 9.5 Total Bilirubin 0.6 Direct Bilirubin 0.00 Indirect Bilirubin 0.6 Aspartate Amino Transf (AST/SGOT) 28 Alanine Aminotransferase (ALT/SGPT) 44 Alkaline Phosphatase 40 L Total Protein 7.5 Albumin 4.1 Globulin 3.40 H Albumin/Globulin Ratio 1.20 Medications Medications Current Medications Dextrose (D50w Syringe) ONCE PRN IV POC BLOOD GLUCOSE <250 MG/DL Last administered on 11/03/16 16:44; Admin Dose 50 ML; Start 11/03/16 at 16:30 Aspirin (Halfprin) 81 mg DAILY PO Last administered on 11/07/16 09:04; Admin Dose 81 MG; Start 11/04/16 at 09:00 Cholecalciferol (Vitamin D) 2,000 unit DAILY PO Last administered on 11/07/16 15:27; Admin Dose 2,000 UNIT; Start 11/04/16 at 09:00 Ferrous Sulfate (Ferrous Sulfate (Ec)) 325 mg DAILY PO Last administered on 11/07 09:04; Admin Dose 325 MG; Start 11/04/16 at 09:00 Isosorbide Mononitrate (Imdur) 30 mg DAILY PO Last administered on 11/07/16 09: 03; Admin Dose 30 MG; Start 11/04/16 at 09:00 Metoprolol Succinate (Toprol Xl) 25 mg DAILY PO Last administered on 11/07/16 09:04; Admin Dose 25 MG; Start 11/04/16 at 09:00 Nitroglycerin (Nitroglycerin (Sl Tab) 0.4 Mg) 0.4 tab [id number] PRN SL CHEST PAIN; Start 11/03/16 at 19:00 Ranolazine (Ranexa) 500 mg Q12 PO Last administered on 11/07/16 09:04; Admin Dose 500 MG; Start 11/03/16 at 21:00 Vitamin E (Vitamin E) 400 units DAILY PO Last administered on 11/07/16 09:03; Admin Dose 400 UNITS; Start 11/04/16 at 09:00 Ondansetron HCl (Zofran Inj) 4 mg Q6H PRN IV NAUSEA AND/OR VOMITING; Start at 19:00 Acetaminophen (Tylenol Tab) 650 mg Q6H PRN PO PAIN LEVEL 1-3 OR FEVER; Start at 19:00 Acetaminophen (Tylenol Supp) 650 mg Q6H PRN [place] PAIN LEVEL 1-3 OR FEVER; Start 11/03/16 at 19:00 Docusate Sodium (Colace) 100 mg Q12H PRN PO CONSTIPATION; Start 11/03/16 at 19: 00 Magnesium Hydroxide (Milk Of Mag) 30 ml DAILY PRN PO CONSTIPATION; Start at 19:00 Bisacodyl (Dulcolax) 5 mg DAILY PRN PO CONSTIPATION; Start 11/03/16 at 19:00 Pantoprazole (Protonix Iv) 40 mg DAILY@06 IV Last administered on 11/07/16 06: 10; Admin Dose 40 MG; Start 11/04/16 at 06:00 Atorvastatin Calcium (Lipitor) 40 mg DAILY@21 PO Last administered on 21:43; Admin Dose 40 MG; Start 11/04/16 at 21:00 Ticagrelor (Brilinta) 90 mg BID PO Last administered on 11/07/16 09:03; Admin Dose 90 MG; Start 11/04/16 at 21:00 Meclizine HCl (Antivert) 12.5 mg TID PO Last administered on 11/07/16 15:27; Admin Dose 12.5 MG; Start 11/06/16 at 21:00 Midodrine (Proamatine) 2.5 mg DAILY PO Last administered on 11/07/16 16:51; Admin Dose 2.5 MG; Start 11/06/16 at 17:00 DIRK SIMMONS MD Nov 07, 2016 17:13
[2016-11-07] MEDS: SOD CHLORIDE 0.9% 1,000 ML IV SCH (17:59)
[2016-11-07] MEDS: ATORVASTATIN 40 MG TAB PO SCH (21:42)
[2016-11-08] VITALS (11 sets, daily range): BP systolic 106–139; BP diastolic 56–77; PULSE 58–68; RESP 16–18
[2016-11-08] MEDS: PANTOPRAZOLE 40 MG INJ IV SCH (05:23)
[2016-11-08 07:34] LABS: CALCIUM 9.1 mg/dl (8.4-10.2); CREATININE 0.83 mg/dl (0.61-1.24); POTASSIUM 4.4 mmol/L (3.5-5.1)
--- NOTE | 2016-11-08 09:02 | HP ---
DATE OF ADMISSION: 11/03/2016 HISTORY OF PRESENT ILLNESS: The patient is a 80-year-old male who has a history of known ST elevation myocardial infarction, status post left heart catheter with 2 stents, history of CABG, and history of syncopal episode in the past, history of hypertension, history of dyslipidemia, GERD. The patient also has a history of CABG, history of cholelithiasis, history of , history of old CVA, history of ejection fraction of 57%, history of mild tricuspid regurgitation and mild pulmonary regurgitation who presented with weakness, dizziness, and labile blood pressure, noted to have blood pressure currently of 108/57. The patient in the ER was noted to have hematocrit 32.1, potassium 5.7, sodium 129, BUN 33, creatinine 1.25, and patient received Lasix in the ER, Kayexalate. The patient had CT of brain that showed no acute intracranial mass, mild to moderate periventricular and subcortical right Chest x-ray shows stable ill-defined opacity in the right lower lung zone. PAST MEDICAL HISTORY: CAD, CABG, and non-ST myocardial infarction, syncope, history of CABG, history of anemia, hyponatremia. ALLERGIES: NEGATIVE. FAMILY HISTORY: Negative. SOCIAL HISTORY: Negative. HOME MEDICATIONS: 1. Amlodipine. 2. Ascorbic acid. 3. Aspirin. 4. Calcium carbonate. 5. Vitamin D3. 6. Omeprazole. 7. Iron sulfate. 8. Hydrochlorothiazide. 9. Isosorbide. 10. Metoprolol. 11. Nitro. 12. Benicar. 13. [place]-3. 14. Fatty acids. 15. Ranexa. 16. Crestor. 17. Brilinta. 18. Vitamin E. REVIEW OF SYSTEMS: HEENT: Dizziness. Respiratory: Unremarkable. Cardiovascular: No chest pain. Abdomen: Dyspepsia. Extremities: Unremarkable. Neuro: General dizziness. No numbness or tingling. PHYSICAL EXAMINATION: GENERAL: Awake, alert. VITALS: Pulse 84, blood pressure 108/57. HEENT: Head atraumatic, normocephalic. Pupils are equal and reactive to light. NECK: Supple. No JVD. LUNGS: Clear. CVS: S1, S2 normal. ABDOMEN: Soft, nontender. Bowel sounds positive. No palpable mass or hepatosplenomegaly. No guarding or rebound tenderness. EXTREMITIES: No cyanosis, clubbing, or edema. DELI CLERK: The patient is awake and alert with no focal deficits. LABORATORY DATA: WBC 4.6, hematocrit 32.1, platelet count 205. Sodium 129, potassium 5.7, BUN 33, creatinine 1.25. IMPRESSION: 1. Dizziness. 2. Acute kidney injury. 3. Hyperkalemia. 4. History of coronary artery disease. 5. Question transient ischemic attack or cerebrovascular accident at this point. 6. Hypertension. 7. History of coronary artery bypass graft. 8. Anemia. PLAN: At this point, is to put this patient on a cardiac diet, IV fluid, troponin with cardiology consultation and 2-D echo and Lexiscan. PPI. Continue home medications. Dictated By: Jj Reed MD /angel/kenny /Document#: [id number] MTDMack
[2016-11-08] MEDS: RANOLAZINE (SR) 500 MG TAB PO SCH ×2 (09:07→21:44)
[2016-11-08] MEDS: ASPIRIN (EC) 81 MG TAB PO SCH (09:07)
[2016-11-08] MEDS: ISOSORBIDE MONONITRATE(SR)30 MG TAB PO SCH (09:07)
[2016-11-08] MEDS: CHOLECALCIFEROL 2,000 UNIT CAP PO SCH (09:08)
[2016-11-08] MEDS: VITAMIN E 400 UNITS CAP PO SCH (09:08)
[2016-11-08] MEDS: FERROUS SULFATE (EC) 325 MG TAB PO SCH (09:08)
[2016-11-08] MEDS: MECLIZINE 12.5 MG TAB PO SCH ×3 (09:09→21:43)
[2016-11-08] MEDS: METOPROLOL (XL) 25 MG TAB PO SCH (09:18)
[2016-11-08] MEDS: TICAGRELOR 90 MG TABLET PO SCH ×2 (11:45→22:11)
--- NOTE | 2016-11-08 13:17 | CONS ---
Date/Time of Note Date/Time of Note DATE: 11/08/16 TIME: 13:12 Assessment/Plan Assessment/Plan Chief Complaint/Hosp Course IMP: 1. Syncope-proceeded by dizziness. No significant gagan/tachy arrrythmias or pauses by tele/no sig ischemia by lexiscan. NL EF and no sig valve abnl by echo this admit. ? dehydration 2.Hotn-currently improved 3.BRadycardia-to 50's thus far with evidence of conduction system disorder 4.cad s/p cabg 5. H/O PTCA/stent placement 10/22 with BRUCE to LCX ReccL: -Tele -serial ecg's -Continue imdur as tolerated and hold BB -Continue asa/Brilinta(ok to take 60 bid at this time)/statin -Continue meclizine -follow volume status -Continue ranexa Problems: Consultation Date/Type/Reason Admit Date/Time Nov 03, 2016 at 17:22 Initial Consult Date 11/03/2016 Type of Consultation: cardiology Reason for Consultation syncope Referring Provider: DIRK SIMMONS MD Exam/Review of Systems Vital Signs Vitals Vital Signs Date Time Temp Pulse Resp B/P Pulse Ox O2 Delivery O2 Flow Rate FiO2 11/08/16 12:26 64 11/08/16 11:11 98.4 18 117/57 97 11/06/16 16:04 Room Air Intake and Output 11/07/16 11/07/16 11/08/16 15:00 23:00 07:00 Intake Total 900 ml 940 ml Output Total 1600 ml Balance 900 ml -660 ml Exam Review of Systems: CONSTITUTIONAL: No fevers, chills. PULMONARY: No sob CARDIOVASCULAR: No chest pain/palpitations GASTROINTESTINAL: No nausea/vomiting. GENITOURINARY: No hematuria/dysuria. MUSCULOSKELETAL: No myagias/arthalgias. PSYCHIATRIC: The patient denies depression. NEUROLOGIC: No weakness Constitutional: alert Psych: no complaints Head: normocephalic Neck: jvd (8 cm water), supple Respiratory: clear to auscultation Cardiovascular: regular rate and rhythm Gastrointestinal: soft Musculoskeletal: muscle tone (normal) Extremities: edema (none) Neurological: other (No focal deficits) Results Result Diagram: 11/05/16 0541 11/08/16 0623 Results 24 hrs Laboratory Tests Test 11/08/16 06:23 Sodium Level 135 Potassium Level 4.4 Chloride Level 94 L Carbon Dioxide Level 29 Anion Gap 16 Blood Urea Nitrogen 20 Creatinine 0.83 Glucose Level 97 Calcium Level 9.1 Medications Medications Current Medications Dextrose (D50w Syringe) ONCE PRN IV POC BLOOD GLUCOSE <250 MG/DL Last administered on 11/03/16 16:44; Admin Dose 50 ML; Start 11/03/16 at 16:30 Aspirin (Halfprin) 81 mg DAILY PO Last administered on 11/08/16 09:07; Admin Dose 81 MG; Start 11/04/16 at 09:00 Cholecalciferol (Vitamin D) 2,000 unit DAILY PO Last administered on 11/08/16 09:08; Admin Dose 2,000 UNIT; Start 11/04/16 at 09:00 Ferrous Sulfate (Ferrous Sulfate (Ec)) 325 mg DAILY PO Last administered on 11/08 09:08; Admin Dose 325 MG; Start 11/04/16 at 09:00 Isosorbide Mononitrate (Imdur) 30 mg DAILY PO Last administered on 11/08/16 09: 07; Admin Dose 30 MG; Start 11/04/16 at 09:00 Metoprolol Succinate (Toprol Xl) 25 mg DAILY PO Last administered on 11/08/16 09:18; Admin Dose 25 MG; Start 11/04/16 at 09:00 Nitroglycerin (Nitroglycerin (Sl Tab) 0.4 Mg) 0.4 tab [id number] PRN SL CHEST PAIN; Start 11/03/16 at 19:00 Ranolazine (Ranexa) 500 mg Q12 PO Last administered on 11/08/16 09:07; Admin Dose 500 MG; Start 11/03/16 at 21:00 Vitamin E (Vitamin E) 400 units DAILY PO Last administered on 11/08/16 09:08; Admin Dose 400 UNITS; Start 11/04/16 at 09:00 Ondansetron HCl (Zofran Inj) 4 mg Q6H PRN IV NAUSEA AND/OR VOMITING; Start at 19:00 Acetaminophen (Tylenol Tab) 650 mg Q6H PRN PO PAIN LEVEL 1-3 OR FEVER; Start at 19:00 Acetaminophen (Tylenol Supp) 650 mg Q6H PRN [place] PAIN LEVEL 1-3 OR FEVER; Start 11/03/16 at 19:00 Docusate Sodium (Colace) 100 mg Q12H PRN PO CONSTIPATION; Start 11/03/16 at 19: 00 Magnesium Hydroxide (Milk Of Mag) 30 ml DAILY PRN PO CONSTIPATION; Start at 19:00 Bisacodyl (Dulcolax) 5 mg DAILY PRN PO CONSTIPATION; Start 11/03/16 at 19:00 Pantoprazole (Protonix Iv) 40 mg DAILY@06 IV Last administered on 11/08/16 05: 23; Admin Dose 40 MG; Start 11/04/16 at 06:00 Atorvastatin Calcium (Lipitor) 40 mg DAILY@21 PO Last administered on 11/07/16 21:42; Admin Dose 40 MG; Start 11/04/16 at 21:00 Ticagrelor (Brilinta) 90 mg BID PO Last administered on 11/08/16 11:45; Admin Dose 90 MG; Start 11/04/16 at 21:00 Meclizine HCl (Antivert) 12.5 mg TID PO Last administered on 11/08/16 09:09; Admin Dose 12.5 MG; Start 11/06/16 at 21:00 Midodrine 2.5 mg 2.5 mg DAILY PO Last administered on 11/07/16 16:51; Admin Dose 2.5 MG; Start 11/06/16 at 17:00 Sodium Chloride (NS) 1,000 ml @ 40 mls/hr Q24H IV Last administered on 17:59; Admin Dose 40 MLS/HR; Start 11/07/16 at 17:30 MICHAEL WEINER Nov 08, 2016 13:17
[2016-11-08] MEDS: SOD CHLORIDE 0.9% 1,000 ML IV SCH (17:30)
[2016-11-08] MEDS: ATORVASTATIN 40 MG TAB PO SCH (21:43)
[2016-11-09] VITALS (12 sets, daily range): BP systolic 124–141; BP diastolic 63–71; PULSE 56–77; RESP 19–20
--- NOTE | 2016-11-09 00:13 | PN ---
Date/Time of Note Date/Time of Note DATE: 11/09/16 TIME: 00:13 Assessment/Plan VTE Prophylaxis VTE Prophylaxis Intervention: other Lines/Catheters IV Catheter Type (from [facility] Saline Lock Urinary Cath still in place: No Assessment/Plan Chief Complaint/Hosp Course SYNCOPE BETTER CAD S/P YENNY VERTIGO ORTHOSATIC BP BETTER PLAN LABS PROAMANTINE DAILY PT OT Problems: Subjective 24 Hr Interval Summary Subjective hx not possible: other (DIZZINESS +) Exam/Review of Systems Vital Signs Vitals Vital Signs Date Time Temp Pulse Resp B/P Pulse Ox O2 Delivery O2 Flow Rate FiO2 11/08/16 20:50 62 11/08/16 20:15 97.9 18 106/56 94 11/06/16 16:04 Room Air Intake and Output 11/08/16 11/08/16 11/09/16 15:00 23:00 07:00 Intake Total 300 ml Balance 300 ml Exam Respiratory: clear to auscultation Cardiovascular: regular rate and rhythm Gastrointestinal: soft Musculoskeletal: nl extremities to inspection Extremities: normal pulses Results Result Diagram: 11/05/16 0541 11/08/16 0623 Results 24 hrs Laboratory Tests Test 11/08/16 06:23 Sodium Level 135 Potassium Level 4.4 Chloride Level 94 L Carbon Dioxide Level 29 Anion Gap 16 Blood Urea Nitrogen 20 Creatinine 0.83 Glucose Level 97 Calcium Level 9.1 Medications Medications Current Medications Dextrose (D50w Syringe) ONCE PRN IV POC BLOOD GLUCOSE <250 MG/DL Last administered on 11/03/16 16:44; Admin Dose 50 ML; Start 11/03/16 at 16:30 Aspirin (Halfprin) 81 mg DAILY PO Last administered on 11/08/16 09:07; Admin Dose 81 MG; Start 11/04/16 at 09:00 Cholecalciferol (Vitamin D) 2,000 unit DAILY PO Last administered on 11/08/16 09:08; Admin Dose 2,000 UNIT; Start 11/04/16 at 09:00 Ferrous Sulfate (Ferrous Sulfate (Ec)) 325 mg DAILY PO Last administered on 11/08 09:08; Admin Dose 325 MG; Start 11/04/16 at 09:00 Isosorbide Mononitrate (Imdur) 30 mg DAILY PO Last administered on 11/08/16 09: 07; Admin Dose 30 MG; Start 11/04/16 at 09:00 Metoprolol Succinate (Toprol Xl) 25 mg DAILY PO Last administered on 11/08/16 09:18; Admin Dose 25 MG; Start 11/04/16 at 09:00; Status Future Hold Nitroglycerin (Nitroglycerin (Sl Tab) 0.4 Mg) 0.4 tab [id number] PRN SL CHEST PAIN; Start 11/03/16 at 19:00 Ranolazine (Ranexa) 500 mg Q12 PO Last administered on 11/08/16 21:44; Admin Dose 500 MG; Start 11/03/16 at 21:00 Vitamin E (Vitamin E) 400 units DAILY PO Last administered on 11/08/16 09:08; Admin Dose 400 UNITS; Start 11/04/16 at 09:00 Ondansetron HCl (Zofran Inj) 4 mg Q6H PRN IV NAUSEA AND/OR VOMITING; Start at 19:00 Acetaminophen (Tylenol Tab) 650 mg Q6H PRN PO PAIN LEVEL 1-3 OR FEVER; Start at 19:00 Acetaminophen (Tylenol Supp) 650 mg Q6H PRN [place] PAIN LEVEL 1-3 OR FEVER; Start 11/03/16 at 19:00 Docusate Sodium (Colace) 100 mg Q12H PRN PO CONSTIPATION; Start 11/03/16 at 19: 00 Magnesium Hydroxide (Milk Of Mag) 30 ml DAILY PRN PO CONSTIPATION; Start at 19:00 Bisacodyl (Dulcolax) 5 mg DAILY PRN PO CONSTIPATION; Start 11/03/16 at 19:00 Pantoprazole (Protonix Iv) 40 mg DAILY@06 IV Last administered on 11/08/16 05: 23; Admin Dose 40 MG; Start 11/04/16 at 06:00 Atorvastatin Calcium (Lipitor) 40 mg DAILY@21 PO Last administered on 11/08/16 21:43; Admin Dose 40 MG; Start 11/04/16 at 21:00 Ticagrelor (Brilinta) 90 mg BID PO Last administered on 11/08/16 22:11; Admin Dose 90 MG; Start 11/04/16 at 21:00 Meclizine HCl (Antivert) 12.5 mg TID PO Last administered on 11/08/16 21:43; Admin Dose 12.5 MG; Start 11/06/16 at 21:00 Midodrine 2.5 mg 2.5 mg DAILY PO Last administered on 11/07/16 16:51; Admin Dose 2.5 MG; Start 11/06/16 at 17:00 Sodium Chloride (NS) 1,000 ml @ 40 mls/hr Q24H IV Last administered on 17:59; Admin Dose 40 MLS/HR; Start 11/07/16 at 17:30 DIRK SIMMONS MD Nov 09, 2016 00:13
[2016-11-09] MEDS: PANTOPRAZOLE 40 MG INJ IV SCH (05:42)
[2016-11-09] MEDS: RANOLAZINE (SR) 500 MG TAB PO SCH ×2 (08:39→20:37)
[2016-11-09] MEDS: CHOLECALCIFEROL 2,000 UNIT CAP PO SCH (08:40)
[2016-11-09] MEDS: ASPIRIN (EC) 81 MG TAB PO SCH (08:40)
[2016-11-09] MEDS: ISOSORBIDE MONONITRATE(SR)30 MG TAB PO SCH (08:40)
[2016-11-09] MEDS: VITAMIN E 400 UNITS CAP PO SCH (08:40)
[2016-11-09] MEDS: MECLIZINE 12.5 MG TAB PO SCH ×3 (08:40→20:37)
[2016-11-09] MEDS: FERROUS SULFATE (EC) 325 MG TAB PO SCH (08:40)
[2016-11-09] MEDS: TICAGRELOR 90 MG TABLET PO SCH ×2 (08:44→20:38)
[2016-11-09] MEDS: MIDODRINE 2.5 MG TAB PO SCH (08:46)
--- NOTE | 2016-11-09 17:50 | PDOCDIS ---
Discharge Instructions CONDITION Patient Condition: Good HOME CARE INSTRUCTIONS: Special Diet: LOW FAT/LOW JOSETTE ACTIVITY: Activity Restrictions: Slowly Increase Activity FOLLOW UP/APPOINTMENTS Follow-up Plan f/u pcp [address] guerrero [address] barriga 1 wks DIRK SIMMONS MD Nov 09, 2016 17:50
[2016-11-09] MEDS ORDERED: BISA5TAB6 PO (17:53)
[2016-11-09] MEDS ORDERED: MIDO2.5T PO (17:53)
[2016-11-09] MEDS ORDERED: DOCU-216 PO (17:53)
--- NOTE | 2016-11-09 19:48 | PN ---
Date/Time of Note Date/Time of Note DATE: 11/09/16 TIME: 19:47 Assessment/Plan VTE Prophylaxis VTE Prophylaxis Intervention: other Lines/Catheters IV C[facility]ter Type (from [facility] Saline Lock Urinary Cath still in place: No Assessment/Plan Chief Complaint/Hosp Course SYNCOPE BETTER CAD S/P YENNY VERTIGO on antivert ORTHOSATIC BP BETTER PLAN LABS PROAMANTINE DAILY PT OT home soon Problems: Subjective 24 Hr Interval Summary Cardiovascular: no complaints Gastrointestinal: no complaints Neurologic: dizziness (better little) Exam/Review of Systems Vital Signs Vitals Vital Signs Date Time Temp Pulse Resp B/P Pulse Ox O2 Delivery O2 Flow Rate FiO2 11/09/16 16:53 77 11/09/16 16:21 98.3 19 133/64 97 11/06/16 16:04 Room Air Intake and Output 11/08/16 11/08/16 11/09/16 15:00 23:00 07:00 Intake Total 300 ml 640 ml Output Total 2220 ml Balance 300 ml -1580 ml Exam Neck: supple Respiratory: clear to auscultation Cardiovascular: regular rate and rhythm Gastrointestinal: soft Musculoskeletal: nl extremities to inspection Extremities: normal pulses Results Result Diagram: 11/05/16 0541 11/08/16 0623 Medications Medications Current Medications Dextrose (D50w Syringe) ONCE PRN IV POC BLOOD GLUCOSE <250 MG/DL Last administered on 11/03/16 16:44; Admin Dose 50 ML; Start 11/03/16 at 16:30 Aspirin (Halfprin) 81 mg DAILY PO Last administered on 11/09/16 08:40; Admin Dose 81 MG; Start 11/04/16 at 09:00 Cholecalciferol (Vitamin D) 2,000 unit DAILY PO Last administered on 11/09/16 08:40; Admin Dose 2,000 UNIT; Start 11/04/16 at 09:00 Ferrous Sulfate (Ferrous Sulfate (Ec)) 325 mg DAILY PO Last administered on 11/09 08:40; Admin Dose 325 MG; Start 11/04/16 at 09:00 Isosorbide Mononitrate (Imdur) 30 mg DAILY PO Last administered on 11/09/16 08: 40; Admin Dose 30 MG; Start 11/04/16 at 09:00 Metoprolol Succinate (Toprol Xl) 25 mg DAILY PO Last administered on 11/08/16 09:18; Admin Dose 25 MG; Start 11/04/16 at 09:00; Status Future Hold Nitroglycerin (Nitroglycerin (Sl Tab) 0.4 Mg) 0.4 tab [id number] PRN SL CHEST PAIN; Start 11/03/16 at 19:00 Ranolazine (Ranexa) 500 mg Q12 PO Last administered on 11/09/16 08:39; Admin Dose 500 MG; Start 11/03/16 at 21:00 Vitamin E (Vitamin E) 400 units DAILY PO Last administered on 11/09/16 08:40; Admin Dose 400 UNITS; Start 11/04/16 at 09:00 Ondansetron HCl (Zofran Inj) 4 mg Q6H PRN IV NAUSEA AND/OR VOMITING; Start at 19:00 Acetaminophen (Tylenol Tab) 650 mg Q6H PRN PO PAIN LEVEL 1-3 OR FEVER; Start at 19:00 Acetaminophen (Tylenol Supp) 650 mg Q6H PRN [place] PAIN LEVEL 1-3 OR FEVER; Start 11/03/16 at 19:00 Docusate Sodium (Colace) 100 mg Q12H PRN PO CONSTIPATION; Start 11/03/16 at 19: 00 Magnesium Hydroxide (Milk Of Mag) 30 ml DAILY PRN PO CONSTIPATION; Start at 19:00 Bisacodyl (Dulcolax) 5 mg DAILY PRN PO CONSTIPATION; Start 11/03/16 at 19:00 Pantoprazole (Protonix Iv) 40 mg DAILY@06 IV Last administered on 11/09/16 05: 42; Admin Dose 40 MG; Start 11/04/16 at 06:00 Atorvastatin Calcium (Lipitor) 40 mg DAILY@21 PO Last administered on 11/08/16 21:43; Admin Dose 40 MG; Start 11/04/16 at 21:00 Ticagrelor (Brilinta) 90 mg BID PO Last administered on 11/09/16 08:44; Admin Dose 90 MG; Start 11/04/16 at 21:00 Meclizine HCl (Antivert) 12.5 mg TID PO Last administered on 11/09/16 14:11; Admin Dose 12.5 MG; Start 11/06/16 at 21:00 Midodrine (Proamatine) 2.5 mg DAILY PO Last administered on 11/07/16t 16:51; Admin Dose 2.5 MG; Start 11/06/16 at 17:00 DIRK SIMMONS MD Nov 09, 2016 19:48
[2016-11-09] MEDS: ATORVASTATIN 40 MG TAB PO SCH (20:37)
[2016-11-10] VITALS (12 sets, daily range): BP systolic 122–150; BP diastolic 58–74; PULSE 55–83; RESP 15–18
[2016-11-10] MEDS: PANTOPRAZOLE 40 MG INJ IV SCH (05:37)
[2016-11-10] MEDS: VITAMIN E 400 UNITS CAP PO SCH (08:25)
[2016-11-10] MEDS: RANOLAZINE (SR) 500 MG TAB PO SCH ×2 (08:26→21:15)
[2016-11-10] MEDS: FERROUS SULFATE (EC) 325 MG TAB PO SCH (08:26)
[2016-11-10] MEDS: ASPIRIN (EC) 81 MG TAB PO SCH (08:26)
[2016-11-10] MEDS: CHOLECALCIFEROL 2,000 UNIT CAP PO SCH (08:26)
[2016-11-10] MEDS: ISOSORBIDE MONONITRATE(SR)30 MG TAB PO SCH (08:27)
[2016-11-10] MEDS: MIDODRINE 2.5 MG TAB PO SCH (08:28)
[2016-11-10] MEDS: TICAGRELOR 90 MG TABLET PO SCH ×2 (08:31→21:22)
[2016-11-10] MEDS: MECLIZINE 12.5 MG TAB PO SCH ×3 (08:32→21:15)
--- NOTE | 2016-11-10 11:42 | CONS ---
Date/Time of Note Date/Time of Note DATE: 11/10/16 TIME: 11:40 Assessment/Plan Assessment/Plan Chief Complaint/Hosp Course IMP: 1. Syncope-proceeded by dizziness. No significant gagan/tachy arrrythmias or pauses by tele/no sig ischemia by lexiscan. NL EF and no sig valve abnl by echo this admit. ? dehydration 2.Hotn-currently improved 3.BRadycardia-to 50's thus far with evidence of conduction system disorder 4.cad s/p cabg 5. H/O PTCA/stent placement 10/22 with BRUCE to LCX ReccL: -Tele -serial ecg's -Continue imdur at D/C -Instructed patient to continue to hold BB at home -Continue asa/Brilinta(ok to take 60 bid at this time)/statin -Continue meclizine -follow volume status -Continue ranexa -D/C planning with outpatient f/u 2-3 weeks Problems: Consultation Date/Type/Reason Admit Date/Time Nov 03, 2016 at 17:22 Initial Consult Date 11/03/2016 Type of Consultation: cardiology Reason for Consultation bradycardia Referring Provider: DIRK SIMMONS MD Exam/Review of Systems Vital Signs Vitals Vital Signs Date Time Temp Pulse Resp B/P Pulse Ox O2 Delivery O2 Flow Rate FiO2 11/10/16 11:26 98.1 74 18 135/70 97 11/06/16 16:04 Room Air Intake and Output 11/09/16 11/09/16 11/10/16 15:00 23:00 07:00 Intake Total 1400 ml Output Total 600 ml 300 ml Balance 800 ml -300 ml Exam Review of Systems: CONSTITUTIONAL: No fevers, chills. PULMONARY: No sob CARDIOVASCULAR: No chest pain/palpitations GASTROINTESTINAL: No nausea/vomiting. GENITOURINARY: No hematuria/dysuria. MUSCULOSKELETAL: No myagias/arthalgias. PSYCHIATRIC: The patient denies depression. NEUROLOGIC: mild dizziness Constitutional: alert Psych: no complaints Head: normocephalic ENMT: mucosa pink and moist Neck: jvd (9 cm water), supple Respiratory: diminished breath sounds Cardiovascular: other (gagan, RR, NLs1s2 1/6 SM) Gastrointestinal: non-tender, soft Musculoskeletal: muscle tone (normal) Extremities: edema (none) Neurological: other (No focal deficits) Results Result Diagram: 11/08/16 0623 Medications Medications Current Medications Dextrose (D50w Syringe) ONCE PRN IV POC BLOOD GLUCOSE <250 MG/DL Last administered on 11/03/16 16:44; Admin Dose 50 ML; Start 11/03/16 at 16:30 Aspirin (Halfprin) 81 mg DAILY PO Last administered on 11/10/16 08:26; Admin Dose 81 MG; Start 11/04/16 at 09:00 Cholecalciferol (Vitamin D) 2,000 unit DAILY PO Last administered on 11/10/16 08:26; Admin Dose 2,000 UNIT; Start 11/04/16 at 09:00 Ferrous Sulfate (Ferrous Sulfate (Ec)) 325 mg DAILY PO Last administered on 11/10 08:26; Admin Dose 325 MG; Start 11/04/16 at 09:00 Isosorbide Mononitrate (Imdur) 30 mg DAILY PO Last administered on 11/10/16 08: 27; Admin Dose 30 MG; Start 11/04/16 at 09:00 Metoprolol Succinate (Toprol Xl) 25 mg DAILY PO Last administered on 11/08/16 09:18; Admin Dose 25 MG; Start 11/04/16 at 09:00; Status Future Hold Nitroglycerin (Nitroglycerin (Sl Tab) 0.4 Mg) 0.4 tab [id number] PRN SL CHEST PAIN; Start 11/03/16 at 19:00 Ranolazine (Ranexa) 500 mg Q12 PO Last administered on 11/10/16 08:26; Admin Dose 500 MG; Start 11/03/16 at 21:00 Vitamin E (Vitamin E) 400 units DAILY PO Last administered on 11/10/16 08:25; Admin Dose 400 UNITS; Start 11/04/16 at 09:00 Ondansetron HCl (Zofran Inj) 4 mg Q6H PRN IV NAUSEA AND/OR VOMITING; Start at 19:00 Acetaminophen (Tylenol Tab) 650 mg Q6H PRN PO PAIN LEVEL 1-3 OR FEVER; Start at 19:00 Acetaminophen (Tylenol Supp) 650 mg Q6H PRN [place] PAIN LEVEL 1-3 OR FEVER; Start 11/03/16 at 19:00 Docusate Sodium (Colace) 100 mg Q12H PRN PO CONSTIPATION; Start 11/03/16 at 19: 00 Magnesium Hydroxide (Milk Of Mag) 30 ml DAILY PRN PO CONSTIPATION; Start at 19:00 Bisacodyl (Dulcolax) 5 mg DAILY PRN PO CONSTIPATION; Start 11/03/16 at 19:00 Pantoprazole (Protonix Iv) 40 mg DAILY@06 IV Last administered on 11/10/16 05: 37; Admin Dose 40 MG; Start 11/04/16 at 06:00 Atorvastatin Calcium (Lipitor) 40 mg DAILY@21 PO Last administered on 11/09/16 20:37; Admin Dose 40 MG; Start 11/04/16 at 21:00 Ticagrelor (Brilinta) 90 mg BID PO Last administered on 11/10/16 08:31; Admin Dose 90 MG; Start 11/04/16 at 21:00 Meclizine HCl (Antivert) 12.5 mg TID PO Last administered on 11/10/16 08:32; Admin Dose 12.5 MG; Start 11/06/16 at 21:00 Midodrine (Proamatine) 2.5 mg DAILY PO Last administered on 11/07/16 16:51; Admin Dose 2.5 MG; Start 11/06/16 at 17:00 MICHAEL WEINER Nov 10, 2016 11:42
[2016-11-10] MEDS ORDERED: BISACODYL 10 MG SUPP PR ONE (14:00)
--- NOTE | 2016-11-10 14:04 | PN ---
Date/Time of Note Date/Time of Note DATE: 11/10/16 TIME: 14:03 Assessment/Plan VTE Prophylaxis VTE Prophylaxis Intervention: ambulation Lines/Catheters IV [facility] Type (from [facility] Saline Lock Urinary Cath still in place: No Assessment/Plan Chief Complaint/Hosp Course 1. Syncope possibly due RBBB 2. S/p fall with loss of conciseness. 3. Hypertension, controlled 4. Hyperlipidemia 5. S/p heart cath 2014 and stent placement 6. CAD 7 Problems: Assessment/Plan 1. pending D/C 2. FW walker for fall precaution Subjective 24 Hr Interval Summary Constitutional: improved, no complaints Gastrointestinal: constipation Exam/Review of Systems Vital Signs Vitals Vital Signs Date Time Temp Pulse Resp B/P Pulse Ox O2 Delivery O2 Flow Rate FiO2 11/10/16 12:32 78 11/10/16 11:26 98.1 18 135/70 97 11/06/16 16:04 Room Air Intake and Output 11/09/16 11/09/16 11/10/16 15:00 23:00 07:00 Intake Total 1400 ml Output Total 600 ml 300 ml Balance 800 ml -300 ml Exam Constitutional: alert Respiratory: clear to auscultation Cardiovascular: regular rate and rhythm Gastrointestinal: soft Results Result Diagram: 11/08/16 0623 Medications Medications Current Medications Dextrose (D50w Syringe) ONCE PRN IV POC BLOOD GLUCOSE <250 MG/DL Last administered on 11/03/16 16:44; Admin Dose 50 ML; Start 11/03/16 at 16:30 Aspirin (Halfprin) 81 mg DAILY PO Last administered on 11/10/16 08:26; Admin Dose 81 MG; Start 11/04/16 at 09:00 Cholecalciferol (Vitamin D) 2,000 unit DAILY PO Last administered on 11/10/16 08:26; Admin Dose 2,000 UNIT; Start 11/04/16 at 09:00 Ferrous Sulfate (Ferrous Sulfate (Ec)) 325 mg DAILY PO Last administered on 11/10 08:26; Admin Dose 325 MG; Start 11/04/16 at 09:00 Isosorbide Mononitrate (Imdur) 30 mg DAILY PO Last administered on 11/10/16 08: 27; Admin Dose 30 MG; Start 11/04/16 at 09:00 Metoprolol Succinate (Toprol Xl) 25 mg DAILY PO Last administered on 11/08/16 09:18; Admin Dose 25 MG; Start 11/04/16 at 09:00; Status Future Hold Nitroglycerin (Nitroglycerin (Sl Tab) 0.4 Mg) 0.4 tab [id number] PRN SL CHEST PAIN; Start 11/03/16 at 19:00 Ranolazine (Ranexa) 500 mg Q12 PO Last administered on 11/10/16 08:26; Admin Dose 500 MG; Start 11/03/16 at 21:00 Vitamin E (Vitamin E) 400 units DAILY PO Last administered on 11/10/16 08:25; Admin Dose 400 UNITS; Start 11/04/16 at 09:00 Ondansetron HCl (Zofran Inj) 4 mg Q6H PRN IV NAUSEA AND/OR VOMITING; Start at 19:00 Acetaminophen (Tylenol Tab) 650 mg Q6H PRN PO PAIN LEVEL 1-3 OR FEVER; Start at 19:00 Acetaminophen (Tylenol Supp) 650 mg Q6H PRN [place] PAIN LEVEL 1-3 OR FEVER; Start 11/03/16 at 19:00 Docusate Sodium (Colace) 100 mg Q12H PRN PO CONSTIPATION; Start 11/03/16 at 19: 00 Magnesium Hydroxide (Milk Of Mag) 30 ml DAILY PRN PO CONSTIPATION; Start at 19:00 Pantoprazole (Protonix Iv) 40 mg DAILY@06 IV Last administered on 11/10/16 05: 37; Admin Dose 40 MG; Start 11/04/16 at 06:00 Atorvastatin Calcium (Lipitor) 40 mg DAILY@21 PO Last administered on 11/09/16 20:37; Admin Dose 40 MG; Start 11/04/16 at 21:00 Ticagrelor (Brilinta) 90 mg BID PO Last administered on 11/10/16 08:31; Admin Dose 90 MG; Start 11/04/16 at 21:00 Meclizine HCl (Antivert) 12.5 mg TID PO Last administered on 11/10/16 08:32; Admin Dose 12.5 MG; Start 11/06/16 at 21:00 Midodrine (Proamatine) 2.5 mg DAILY PO Last administered on 8/1/17at 16:51; Admin Dose 2.5 MG; Start 11/06/16 at 17:00 Bisacodyl (Dulcolax) 5 mg DAILY PO ; Start 11/11/16 at 09:00; Status UNV Bisacodyl (Dulcolax Supp) 10 mg ONCE ONCE MO ; Start 11/10/16 at 14:00; Stop 11/10/16 at 14:01; Status UNV USAMA BORJA Nov 10, 2016 14:04
[2016-11-10] MEDS: ATORVASTATIN 40 MG TAB PO SCH (21:15)
[2016-11-11] VITALS (10 sets, daily range): BP systolic 120–153; BP diastolic 63–82; PULSE 59–88; RESP 15–18
[2016-11-11] MEDS: PANTOPRAZOLE 40 MG INJ IV SCH (05:26)
[2016-11-11] MEDS: MIDODRINE 2.5 MG TAB PO SCH (08:29)
[2016-11-11] MEDS: ISOSORBIDE MONONITRATE(SR)30 MG TAB PO SCH (08:30)
[2016-11-11] MEDS: VITAMIN E 400 UNITS CAP PO SCH (08:30)
[2016-11-11] MEDS: ASPIRIN (EC) 81 MG TAB PO SCH (08:30)
[2016-11-11] MEDS: MECLIZINE 12.5 MG TAB PO SCH ×2 (08:31→13:44)
[2016-11-11] MEDS: FERROUS SULFATE (EC) 325 MG TAB PO SCH (08:31)
[2016-11-11] MEDS: CHOLECALCIFEROL 2,000 UNIT CAP PO SCH (08:31)
[2016-11-11] MEDS: TICAGRELOR 90 MG TABLET PO SCH (08:34)
[2016-11-11] MEDS: RANOLAZINE (SR) 500 MG TAB PO SCH (08:36)
[2016-11-11] MEDS ORDERED: BISACODYL (EC) 5 MG TAB PO SCH (09:00)
--- NOTE | 2016-11-11 13:36 | CONS ---
Date/Time of Note Date/Time of Note DATE: 11/11/16 TIME: 13:33 Assessment/Plan Assessment/Plan Additional Assessment/Plan CAD, s/p CABG, s/p PTCA and stenting Syncope Hypertension Hemodynamically stable in NSR Continue Imdur Continue Brilinta and ASA Continue Midodrine Continue Lipitor Consultation Date/Type/Reason Admit Date/Time Nov 03, 2016 at 17:22 Constitutional: improved, no complaints ENT: no complaints Respiratory: no complaints Cardiovascular: no complaints Gastrointestinal: constipation Genitourinary: no complaints Neurologic: dizziness (better little) Psychological: no complaints Past Medical History Medical History: coronary artery disease, high cholesterol, hypertension Past Surgical History Past Surgical Hx: angioplasty, coronary bypass surgery Social History Alcohol Use: none Smoking Status: Never smoker Drug Use: none Exam/Review of Systems Vital Signs Vitals Vital Signs Date Time Temp Pulse Resp B/P Pulse Ox O2 Delivery O2 Flow Rate FiO2 11/11/16 11:47 98.1 72 18 145/78 94 Intake and Output 11/10/16 11/10/16 11/11/16 15:00 23:00 07:00 Intake Total 1200 ml 750 ml Balance 1200 ml 750 ml Exam Constitutional: alert, oriented Head: atraumatic, normocephalic Respiratory: clear to auscultation Cardiovascular: regular rate and rhythm Gastrointestinal: nl liver, spleen, non-tender, soft Extremities: normal pulses Results Result Diagram: 11/08/16 0623 Medications Medications Current Medications Dextrose (D50w Syringe) ONCE PRN IV POC BLOOD GLUCOSE <250 MG/DL Last administered on 11/03/16 16:44; Admin Dose 50 ML; Start 11/03/16 at 16:30 Aspirin (Halfprin) 81 mg DAILY PO Last administered on 11/11/16 08:30; Admin Dose 81 MG; Start 11/04/16 at 09:00 Cholecalciferol (Vitamin D) 2,000 unit DAILY PO Last administered on 11/11/16 08:31; Admin Dose 2,000 UNIT; Start 11/04/16 at 09:00 Ferrous Sulfate (Ferrous Sulfate (Ec)) 325 mg DAILY PO Last administered on 11/11 08:31; Admin Dose 325 MG; Start 11/04/16 at 09:00 Isosorbide Mononitrate (Imdur) 30 mg DAILY PO Last administered on 11/11/16 08: 30; Admin Dose 30 MG; Start 11/04/16 at 09:00 Metoprolol Succinate (Toprol Xl) 25 mg DAILY PO Last administered on 11/08/16 09:18; Admin Dose 25 MG; Start 11/04/16 at 09:00; Status Future Hold Nitroglycerin (Nitroglycerin (Sl Tab) 0.4 Mg) 0.4 tab [id number] PRN SL CHEST PAIN; Start 11/03/16 at 19:00 Ranolazine (Ranexa) 500 mg Q12 PO Last administered on 11/11/16 08:36; Admin Dose 500 MG; Start 11/03/16 at 21:00 Vitamin E (Vitamin E) 400 units DAILY PO Last administered on 11/11/16 08:30; Admin Dose 400 UNITS; Start 11/04/16 at 09:00 Ondansetron HCl (Zofran Inj) 4 mg Q6H PRN IV NAUSEA AND/OR VOMITING; Start at 19:00 Acetaminophen (Tylenol Tab) 650 mg Q6H PRN PO PAIN LEVEL 1-3 OR FEVER; Start at 19:00 Acetaminophen (Tylenol Supp) 650 mg Q6H PRN [place] PAIN LEVEL 1-3 OR FEVER; Start 11/03/16 at 19:00 Docusate Sodium (Colace) 100 mg Q12H PRN PO CONSTIPATION; Start 11/03/16 at 19: 00 Magnesium Hydroxide (Milk Of Mag) 30 ml DAILY PRN PO CONSTIPATION; Start at 19:00 Pantoprazole (Protonix Iv) 40 mg DAILY@06 IV Last administered on 11/11/16 05: 26; Admin Dose 40 MG; Start 11/04/16 at 06:00 Atorvastatin Calcium (Lipitor) 40 mg DAILY@21 PO Last administered on 11/10/16 21:15; Admin Dose 40 MG; Start 11/04/16 at 21:00 Ticagrelor (Brilinta) 90 mg BID PO Last administered on 11/11/16 08:34; Admin Dose 90 MG; Start 11/04/16 at 21:00 Meclizine HCl (Antivert) 12.5 mg TID PO Last administered on 11/11/16 08:31; Admin Dose 12.5 MG; Start 11/06/16 at 21:00 Midodrine (Proamatine) 2.5 mg DAILY PO Last administered on 11/07/16 16:51; Admin Dose 2.5 MG; Start 11/06/16 at 17:00 Bisacodyl (Dulcolax) 5 mg DAILY PO Last administered on 11/11/16 08:30; Admin Dose 5 MG; Start 11/11/16 at 09:00 TRANG JAVIER M.D. Nov 11, 2016 13:36
[2016-11-11] MEDS ORDERED: MECL-77 PO (13:49)
--- NOTE | 2016-11-11 13:50 | PN ---
Date/Time of Note Date/Time of Note DATE: 11/11/16 TIME: 13:50 Assessment/Plan VTE Prophylaxis VTE Prophylaxis Intervention: ambulation Lines/Catheters IV [facility] Type (from [facility] Saline Lock Urinary Cath still in place: No Assessment/Plan Chief Complaint/Hosp Course 1. Syncope possibly due RBBB 2. S/p fall with loss of conciseness. 3. Hypertension, controlled 4. Hyperlipidemia 5. S/p heart cath 2014 and stent placement 6. CAD 7 Problems: Assessment/Plan 1. Discharge home, pt refused home health for mobility Subjective 24 Hr Interval Summary Constitutional: improved, no complaints Exam/Review of Systems Vital Signs Vitals Vital Signs Date Time Temp Pulse Resp B/P Pulse Ox O2 Delivery O2 Flow Rate FiO2 11/11/16 11:47 98.1 72 18 145/78 94 Intake and Output 11/10/16 11/10/16 11/11/16 15:00 23:00 07:00 Intake Total 1200 ml 750 ml Balance 1200 ml 750 ml Exam Eyes: nl conjunctiva Neck: supple Respiratory: clear to auscultation Cardiovascular: regular rate and rhythm Results Result Diagram: 11/08/16 0623 Medications Medications Current Medications Dextrose (D50w Syringe) ONCE PRN IV POC BLOOD GLUCOSE <250 MG/DL Last administered on 11/03/16 16:44; Admin Dose 50 ML; Start 11/03/16 at 16:30 Aspirin (Halfprin) 81 mg DAILY PO Last administered on 11/11/16 08:30; Admin Dose 81 MG; Start 11/04/16 at 09:00 Cholecalciferol (Vitamin D) 2,000 unit DAILY PO Last administered on 11/11/16 08:31; Admin Dose 2,000 UNIT; Start 11/04/16 at 09:00 Ferrous Sulfate (Ferrous Sulfate (Ec)) 325 mg DAILY PO Last administered on 11/11 08:31; Admin Dose 325 MG; Start 11/04/16 at 09:00 Isosorbide Mononitrate (Imdur) 30 mg DAILY PO Last administered on 11/11/16 08: 30; Admin Dose 30 MG; Start 11/04/16 at 09:00 Metoprolol Succinate (Toprol Xl) 25 mg DAILY PO Last administered on 11/08/16 09:18; Admin Dose 25 MG; Start 11/04/16 at 09:00; Status Future Hold Nitroglycerin (Nitroglycerin (Sl Tab) 0.4 Mg) 0.4 tab [id number] PRN SL CHEST PAIN; Start 11/03/16 at 19:00 Ranolazine (Ranexa) 500 mg Q12 PO Last administered on 11/11/16 08:36; Admin Dose 500 MG; Start 11/03/16 at 21:00 Vitamin E (Vitamin E) 400 units DAILY PO Last administered on 11/11/16 08:30; Admin Dose 400 UNITS; Start 11/04/16 at 09:00 Ondansetron HCl (Zofran Inj) 4 mg Q6H PRN IV NAUSEA AND/OR VOMITING; Start at 19:00 Acetaminophen (Tylenol Tab) 650 mg Q6H PRN PO PAIN LEVEL 1-3 OR FEVER; Start at 19:00 Acetaminophen (Tylenol Supp) 650 mg Q6H PRN [place] PAIN LEVEL 1-3 OR FEVER; Start 11/03/16 at 19:00 Docusate Sodium (Colace) 100 mg Q12H PRN PO CONSTIPATION; Start 11/03/16 at 19: 00 Magnesium Hydroxide (Milk Of Mag) 30 ml DAILY PRN PO CONSTIPATION; Start at 19:00 Pantoprazole (Protonix Iv) 40 mg DAILY@06 IV Last administered on 11/11/16 05: 26; Admin Dose 40 MG; Start 11/04/16 at 06:00 Atorvastatin Calcium (Lipitor) 40 mg DAILY@21 PO Last administered on 11/10/16 21:15; Admin Dose 40 MG; Start 11/04/16 at 21:00 Ticagrelor (Brilinta) 90 mg BID PO Last administered on 11/11/16 08:34; Admin Dose 90 MG; Start 11/04/16 at 21:00 Meclizine HCl (Antivert) 12.5 mg TID PO Last administered on 11/11/16 13:44; Admin Dose 12.5 MG; Start 11/06/16 at 21:00 Midodrine (Proamatine) 2.5 mg DAILY PO Last administered on 11/07/16 16:51; Admin Dose 2.5 MG; Start 11/06/16 at 17:00 Bisacodyl (Dulcolax) 5 mg DAILY PO Last administered on 11/11/16t 08:30; Admin Dose 5 MG; Start 11/11/16 at 09:00 USAMA BORJA Nov 11, 2016 13:50
== END 2016-11-11 16:59 | disposition home or self-care (01) | DRG 309 ==
LOC: E/R 14:31 → TEL 17:22
PROVIDERS: ADMIT Internal Medicine Nephrology; ATTEND Internal Medicine Nephrology
DX: I45.10 Unspecified right bundle-branch block (principal); N17.9 Acute kidney failure, unspecified; E87.5 Hyperkalemia; E87.1 Hypo-osmolality and hyponatremia; E86.0 Dehydration; I10 Essential (primary) hypertension; Z95.5 Presence of coronary angioplasty implant and graft; E78.5 Hyperlipidemia, unspecified; Z95.1 Presence of aortocoronary bypass graft; I25.2 Old myocardial infarction
CPT/HCPCS: 36415; 70450; 71010; 76700; 78452; 80048; 80053; 80061; 82550; 82553; 82962; 84443; 84484; 85025; 85610; 85730; 93005; 93017; 93306; 93880; 94664; 96374; 96375; 97162; A9500; A9505; C9113; J1815; J1940; J2785; J7030

== ENCOUNTER 2017-01-18 08:21 | Day surgery (SDC) | payer MEDICARE, OTHER ==
[~2017-01-18] VITALS: Ht 162.6 cm; Wt 73.0 kg
[~2017-01-18 08:21] MED LIST changes: -AMLO5TAB4 PO; +ASC500 PO; +ASPI81TA50 PO; +BISA5TAB6 PO; +CALC-686 PO; +CHOL200073 PO; +DOCU-216 PO; +FER325 PO; -FLUC100T39 PO; +MECL-77 PO; +METO-335 PO; -METO50TA16 PO; +MIDO2.5T PO; +MULT-861 PO; +OMEG100016 PO; +VITA400C15 PO
[2017-01-18] MEDS ORDERED: RANO500T2 PO (09:00)
[2017-01-18] MEDS ORDERED: OLME20TA20 PO (09:02)
[2017-01-18] MEDS ORDERED: TICA60TA PO (09:02)
[2017-01-18] MEDS ORDERED: ASPI-664 PO (09:03)
[2017-01-18] MEDS ORDERED: ISOS30TA5 PO (09:04)
[2017-01-18] MEDS ORDERED: CRES10 PO (09:05)
[2017-01-18 09:12] VITALS: BP 118/65; PULSE 64; RESP 16
[2017-01-18 09:17] VITALS: Ht 162.6 cm; Wt 73.0 kg
[2017-01-18 09:29] LABS: CHOL/HDL RATIO 2.3 RATIO
[2017-01-18 09:30] LABS: CALCIUM 9.3 mg/dl (8.4-10.2); CREATININE 0.84 mg/dl (0.61-1.24); POTASSIUM 4.4 mmol/L (3.5-5.1)
[2017-01-18] MEDS ORDERED: SOD CHLORIDE 0.45% 1,000 ML IV SCH (09:30)
[2017-01-18] MEDS ORDERED: DIAZEPAM 5 MG TAB PO SCH (09:30)
[2017-01-18] MEDS ORDERED: DIPHENHYDRAMINE 50 MG CAP PO SCH (09:30)
[2017-01-18] MEDS ORDERED: FAMOTIDINE 20 MG TAB PO SCH (09:30)
[2017-01-18 09:33] LABS: INR 0.96; PROTIME 12.8 Sec (12.2-14.2)
--- NOTE | 2017-01-18 09:33 | RADRPT ---
PROCEDURE: XR Chest. CLINICAL INDICATION: Shortness of breath TECHNIQUE: Single portable view of the chest was obtained COMPARISON: November 02, 2015 FINDINGS: The trachea is midline. The cardiac silhouette and pulmonary vascularity are within normal limits. T here are bilateral chronic lung changes. The lungs are clear. The costophrenic angles are sharp. Aor tic knob is calcified. Status post mediastinotomy. IMPRESSION: 1. Bilateral chronic lung changes. No evidence of acute cardiopulmonary disease. 2. Stable mediastinal postsurgical changes. Atherosclerotic calcifications. RPTAT: AAPP Physician Nathan Date Time Electronically viewed and signed by Physician Nathan on 01/18/2017 09:33 SIDRA/
[2017-01-18 10:22] LABS: BASOPHILS % 0.8 % (0.0-2.0); EOSINOPHILS # 0.2 10^3/ul (0.0-0.5); EOSINOPHILS % 4.9 % (0.0-7.0); HEMATOCRIT 39.1 % (42.0-52.0); HEMOGLOBIN 14.2 g/dl (14.0-18.0); LYMPHOCYTES # 0.7 10^3/ul (0.8-2.9); LYMPHOCYTES % 14.9 % (15.0-51.0); MEAN CORPUSCULAR HEMOGLOBIN 31.9 pg (29.0-33.0); MEAN CORPUSCULAR HGB CONC 36.3 g/dl (32.0-37.0); MEAN CORPUSCULAR VOLUME 87.9 fl (82.0-101.0); MEAN PLATELET VOLUME 9.7 fl (7.4-10.4); MONOCYTE # 0.5 10^3/ul (0.3-0.9); MONOCYTES % 9.2 % (0.0-11.0); NEUTROPHIL # 3.4 10^3/ul (1.6-7.5); NEUTROPHILS % 69.8 % (39.0-77.0); PLATELET COUNT 238 10^3/UL (140-415); RED BLOOD COUNT 4.45 10^6/ul (4.70-6.10); RED CELL DISTRIBUTION WIDTH 12.7 % (11.5-14.5); WHITE BLOOD COUNT 4.9 10^3/ul (4.8-10.8)
[2017-01-18] MEDS ORDERED: FENTAnyl 50 MCG/ML VIAL ONE (10:34)
[2017-01-18] MEDS ORDERED: MIDAZOLAM 1 MG/ML 2 ML INJ ONE (10:34)
[2017-01-18] MEDS ORDERED: HEPARIN 1000 UNITS/NS (A-LINE) 1,000 ML ONE (11:43)
[2017-01-18] MEDS ORDERED: LIDOCAINE 1% (MDV) 20 ML INJ ONE (11:43)
[2017-01-18] MEDS ORDERED: IODIXANOL LOCM 100 ML BTL ONE (11:43)
[2017-01-18] MEDS ORDERED: hydrALAzine 20 MG INJ ONE (12:07)
[2017-01-18] MEDS ORDERED: SOD CHLORIDE 0.9% 1,000 ML IV SCH (12:08)
--- NOTE | 2017-01-18 12:15 | SIPON ---
Date/Time of Note Date/Time of Note DATE: 01/18/17 TIME: 12:13 Operative Report Preoperative Diagnosis 1.Chest pain 2.Abnl MPI Postoperative Diagnosis 1.Obstructive cad sh[place] vessel 2.Patent MCGEE graft and LCX stents Operation/Procedure Performed 1. [facility] Surgeon see signature line assistant bookkeeper Sonya Anesthesia: moderate sedation Estimated blood loss: minimal Transfusion Required none Specimen NA Grafts/Implants none Complications none MICHAEL WEINER Jan 18, 2017 12:15
[2017-01-18] MEDS ORDERED: morphine 2 MG INJ IV PRN (12:30)
[2017-01-18] MEDS ORDERED: ACETAMINOPHEN 325 MG TAB PO PRN (12:30)
[2017-01-18] MEDS ORDERED: AL HYDROX/MG HYDROX/SIMETH 30 ML CUP PO PRN (12:30)
[2017-01-18] MEDS ORDERED: ONDANSETRON 4 MG INJ IV PRN (12:30)
[2017-01-18 12:50] VITALS: BP 147/75; PULSE 55; RESP 14
--- NOTE | 2017-01-18 16:06 | CARRPT ---
DATE OF PROCEDURE: 01/18/2017 TYPE OF PROCEDURE: 1. Left heart catheterization. 2. Coronary angiography. 3. Femoral angiography. 4. Bypass graft angiography including left internal mammary artery arterial graft. 5. Aortic root angiography. 6. Moderate conscious sedation. ATTENDING PHYSICIAN: Michael Cee MD. REFERRING PHYSICIAN: Self-referred. INDICATION: Chest pain refractory to medical therapy and positive stress test. Findings for anteri or ischemia, high risk marker for cardiovascular events. TYPE OF ANESTHESIA: Conscious and local. BRIEF HISTORY: Mr. Menchaca is an 81-year-old male with history of hypertension, dyslipidemia, coronary artery disease, status post prior coronary bypass graft surgery, who had recently underwent PTCA an d stent placement to circumflex lesion in 2016 and re-presented with complaints of dyspnea on exerti on, chest pain and underwent a cardiac stress test revealing positive ischemia. The patient has now been brought back to the cardiac catheterization lab in order to assess for the possibility of recu rrent significant obstructive coronary artery disease leading to chest pain and subsequent positive stress test findings. PROCEDURE: After informed consent was obtained, the patient was brought to the [facility] cardiac catheterization lab, where his right femoral artery was prepped and draped in usual sterile fashion. 2% lidocaine solution was injected to the right femoral artery in order to achiev e adequate local anesthesia. Using modified Seldinger technique, femoral artery was cannulated and a 6-Spanish arterial sheath was placed. A 5-Spanish JL4 catheter used to cannulate the left main tania nary ostium. With contrast injection, multiple views of the left coronary arterial system were obta ined. JL4 was removed over a guidewire and a JR4 was used to cannulate the right coronary arterial ostium. With contrast injection, multiple views of the right coronary system were obtained. JL4 wa s removed over a guidewire and a JR4 was used to cannulate a stump saphenous vein graft presumed to the right coronary artery and then to cannulate the subclavian. It was exchanged for an BARBARA cathete r, and using the catheter, images of the MCGEE arterial graft to left anterior descending were undert aken. This was subsequently removed and exchanged for BARBARA, which was then used to cannulate the BARBARA , after which some contrast injection was used and CMGEE arterial grafts were taken. This was remove d over a guidewire and a 6-Spanish pigtail was passed in ascending aorta across the aortic valve into the left ventricle. Left ventricular end-diastolic pressure was measured. Using a power injector, 20 mL of contrast was injected, opacifying the left ventricle. Performing a left ventriculogram, w as then pulled back across the aortic valve to assess for significant gradient and left in the aorti c root. At this time, aortic root angiography was undertaken, revealing no further unidentified gra fts. This was subsequently removed and a final angiographic image of the right femoral arterial ins ertion site was then obtained revealing the sheath to be well placed just at the bifurcation of the superficial and profunda femoral artery. Subsequently, it was sutured in place to be removed at a l ater time when the patient's coagulation profile returns to normal. This completed the procedure. There were no noted complications. FINDINGS: 1. Coronary angiography: Left main 5 mm, no significant stenoses. Circumflex proximally is a 2.5 mm vessel and in its midportion has a proximal stented zone and has in-stent restenosis up to approx imately 30%, and the stent that was placed last year has no significant in-stent restenosis. The LA D proximal is a 3 mm vessel and shortly after takeoff becomes 100% occluded. There is a branching d iagonal before this 2 mm focal stenoses. In the distal LAD you can see competitive flow consistent with a widely patent graft. There are grade I collaterals that go from the septal branches to the L AD, distal LAD, and distal circumflex branches that recapitulates the very distal portion of the rig ht coronary artery to its bifurcation; therefore, a long zone of occlusion. The right coronary avinash ry proximally is a 3 mm vessel and shortly after takeoff is 100% occluded and once again has a long zone of occlusion. 2. Bypass graft angiography showed the patient to have an occluded saphenous vein graft presumed to the right coronary artery. MCGEE was a widely patent graft with no intervening stenosis and is anas tomosed to a reasonable sized distal LAD and provides reasonable distal flow with no intervening vinh nosis thereafter. The subclavian had no significant stenoses. 3. Aortic root angiography showed the patient to have chitim[place] left and right with no other further u nidentified grafts. TOTAL FLUOROSCOPY TIME: 10.5 minutes. TOTAL CONTRAST: 85 mL. IMPRESSION: 1. Two-vessel chitimacha vessel obstructive coronary artery disease involving the left anterior descend ing, which is 100% occluded, and patent left internal mammary artery graft and 100% occluded right c oronary artery, which has left to right collateral flow. 2. Widely patent circumflex stents x2 with mild in-stent restenosis in the proximal portion of the stent. 3. Normal left ventricular ejection fraction approximately 55% with inferior hypokinesis 50 to 55% with inferior hypokinesis. Left ventricular end diastolic pressure of 5 pre-LV gram, post-LV gram, and no significant aortic stenosis by gradient, 1+ mitral regurgitation. RECOMMENDATIONS: In light of procedure findings would: 1. Maximize medical management including continuation of aspirin and Brilinta 81 mg and 90 mg p.o. b.i.d., respectively. 2. Aggressive risk factor reduction. 3. Patient will be readmitted to the same day surgery center for post-cath observation and continue d management of symptoms, with probable discharge later this afternoon. 4. The patient has a followup appointment in our office that will take place on the , at which time we will discuss results of this catheterization and ensure that the patient had no post-cathete rization groin complications. Dictated By: MICHAEL SHARP/YESSICA Conf#: [id number] DID#: [id number] CC: Dr. Hopkins;*[facility]*
--- NOTE | 2017-01-19 16:05 | RADRPT ---
Vent Rate: 59 bpm RR Interval: 0 msec W[place] Interval: 192 msec QRS Duration: 160 msec QT Interval: 470 msec QTC Interval: 465 msec P-R-T Benedict: 59 - 3 - 64 degrees Sinus bradycardia Right bundle branch block Inferior infarct , age undetermined Abnormal ECG Electronically Signed By: Mitch Her [id number]
== END 2017-01-18 17:20 | disposition home or self-care (01) ==
LOC: SDS 08:21
PROVIDERS: ATTEND Internal Medicine
DX: R07.9 Chest pain, unspecified (principal); I10 Essential (primary) hypertension; R94.39 Abnormal result of other cardiovascular function study
CPT/HCPCS: 71010; 80048; 80061; 85025; 85610; 85730; 93005; 93459; C1887; C1894; J0360; J1644; J2250; J3010; Q9967

== ENCOUNTER 2018-04-03 16:41 | Inpatient (IN) | payer MEDICARE, OTHER ==
[~2018-04-03] VITALS: Ht 167.6 cm; Wt 71.6 kg
[~2018-04-03 16:41] MED LIST changes: -ASC500 PO; -ASPI81TA50 PO; +ASPI81TA52 PO; -BISA5TAB6 PO; -CALC-686 PO; -CHOL200073 PO; -CRES10 PO; -DOCU-216 PO; -ESOM40CA PO; -FER325 PO; -ISOS30TA5 PO; +ISOS30TA67 PO; -MECL-77 PO; -METO-335 PO; -MIDO2.5T PO; -MULT-861 PO; -NIT4 SL; +OLME20TA20 PO; -OLME40TA14 PO; -OMEG100016 PO; +ROSU10TA55 PO; +TICA60TA PO; -TICA90TA PO; -VITA400C15 PO
[2018-04-03] MEDS ORDERED: SOD CHLORIDE 0.9% 500 ML IV STA (20:56)
[2018-04-03] MEDS ORDERED: ASPI-817 PO (21:45)
[2018-04-03] MEDS ORDERED: RANO500T2 PO (21:46)
[2018-04-03] MEDS ORDERED: OLME20TA20 PO (21:46)
[2018-04-03] MEDS ORDERED: TICA60TA PO (21:47)
[2018-04-03] MEDS ORDERED: ROSU10TA55 PO (21:48)
[2018-04-03] MEDS ORDERED: ESOM40CA PO (21:48)
[2018-04-03] MEDS ORDERED: METO-335 PO (21:49)
[2018-04-03 23:35] VITALS: BP 179/79; PULSE 65; RESP 18
--- NOTE | 2018-04-03 23:36 | ERD ---
ER Documentation Chief Complaint Chief Complaint bloody stools "sometimes red, then dark": hx colonoscopy 02/06; not dizzy HPI This is an 82-year-old male, bloody stools for the past 2 days. Patient has history of colonoscopy on 1030 for similar complaints. He says that it was a difficult colonoscopy secondary to stricture formation. Denies fevers chills nausea vomiting palpitations. Denies any other current issues ROS All systems reviewed and are negative except as per history of present illness. Medications Home Meds Reported Medications Metoprolol Succinate* (Toprol XL*) 25 Mg Tab.sr.24h, 25 MG PO DAILY, #30 TAB 04/03/18 Esomeprazole Mag Trihydrate (Nexium) 40 Mg Capsule.dr, 40 MG PO DAILY, #30 CAP 04/03/18 Rosuvastatin Calcium* (Crestor*) 10 Mg Tablet, 10 MG PO QHS, #30 TAB 04/03/18 Ticagrelor (Brilinta) 60 Mg Tablet, 60 MG PO BID, TAB 04/03/18 Ranolazine* (Ranexa*) 500 Mg Tab.sr.12h, 500 MG PO Q12, TAB 04/03/18 Olmesartan Medoxomil (Benicar) 20 Mg Tablet, 20 MG PO DAILY, #30 TAB 04/03/18 Aspirin* (Aspirin* EC) 81 Mg Tablet.dr, 81 MG PO DAILY, TAB 04/03/18 Discontinued Reported Medications Rosuvastatin Calcium* (Crestor*) 10 Mg Tablet, 10 MG PO QHS, #30 TAB 01/18/17 Isosorbide Mononitrate* (Isosorbide Mononitrate*) 30 Mg Tab.er.24h, 30 MG PO DAILY, TAB 01/18/17 Aspirin (Low Dose Aspirin) 81 Mg Tablet.dr, 81 MG PO DAILY, #30 TAB 01/18/17 Olmesartan Medoxomil (Benicar) 20 Mg Tablet, 20 MG PO BID, #30 TAB 01/18/17 Ticagrelor (Brilinta) 60 Mg Tablet, 60 MG PO BID, TAB 01/18/17 Ranolazine* (Ranexa*) 500 Mg Tab.sr.12h, 500 MG PO Q12, TAB 01/18/17 Allergies Allergies: Coded Allergies: No Known Allergy (Verified , 04/03/18) PMhx/Soc History of Surgery: Yes (CABG,CARDIAC STENT X3) Anesthesia Reaction: No 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) Hx Respiratory Disorders: No Hx Cardiac Disorders: Yes (CP,TN,SYNCOPE,DYSLIPIDEMIA, MILD TRICUSPID AND PULM REGURGIATION) Hx Psychiatric Problems: No Hx Miscellaneous Medical Probl: Yes (ANEMIA) Hx Alcohol Use: No Hx Substance Use: No Hx Tobacco Use: No Smoking Status: Never smoker Physical Exam Vitals Vital Signs Date Temp Pulse Resp B/P (MAP) Pulse Ox O2 O2 Flow FiO2 Time Delivery Rate 04/03/18 64 16 143/72 100 Room Air 23:30 (95) 04/03/18 98.0 67 19 169/79 100 Room Air 20:51 (109) 04/03/18 98.0 85 20 130/61 95 17:05 (84) Physical Exam Const: No acute distress Head: Atraumatic Eyes: Normal Conjunctiva ENT: Normal External Ears, Nose and Mouth. Neck: Full range of motion. No meningismus. Resp: Clear to auscultation bilaterally Cardio: Regular rate and rhythm, no murmurs Abd: Soft, non tender, non distended. Normal bowel sounds Skin: No petechiae or rashes Back: No midline or flank tenderness Ext: No cyanosis, or edema Neur: Awake and alert Psych: Normal Mood and Affect Result Diagram: 04/03/18212404/03/182124 Results 24 hrs Laboratory Tests Test 04/03/18 21:25 White Blood Count 5.9 10^3/ul Red Blood Count 4.14 10^6/ul Hemoglobin 13.0 g/dl Hematocrit 37.1 % Mean Corpuscular Volume 89.6 fl Mean Corpuscular Hemoglobin 31.4 pg Mean Corpuscular Hemoglobin Concent 35.0 g/dl Red Cell Distribution Width 13.7 % Platelet Count 222 10^3/UL Mean Platelet Volume 9.6 fl Immature Granulocytes % 0.300 % Neutrophils % 57.2 % Lymphocytes % 29.3 % Monocytes % 7.3 % Eosinophils % 4.9 % Basophils % 1.0 % Nucleated Red Blood Cells % 0.0 /100WBC Immature Granulocytes # 0.020 10^3/ul Neutrophils # 3.4 10^3/ul Lymphocytes # 1.7 10^3/ul Monocytes # 0.4 10^3/ul Eosinophils # 0.3 10^3/ul Basophils # 0.1 10^3/ul Nucleated Red Blood Cells # 0.0 10^3/ul Prothrombin Time 12.9 Sec Prothrombin Time Ratio 1.0 INR International Normalized Ratio 0.96 Activated Partial Thromboplast Time 28.7 Sec Sodium Level 130 mmol/L Potassium Level 4.8 mmol/L Chloride Level 93 mmol/L Carbon Dioxide Level 28 mmol/L Anion Gap 9 Blood Urea Nitrogen 35 mg/dl Creatinine 0.86 mg/dl Est Glomerular Filtrat Rate mL/min mL/min Glucose Level 120 mg/dl Calcium Level 9.7 mg/dl Total Bilirubin 0.4 mg/dl Direct Bilirubin 0.00 mg/dl Indirect Bilirubin 0.4 mg/dl Aspartate Amino Transf (AST/SGOT) 40 IU/L Alanine Aminotransferase (ALT/SGPT) 37 IU/L Alkaline Phosphatase 47 IU/L Troponin I < 0.012 ng/ml Total Protein 7.7 g/dl Albumin 4.2 g/dl Globulin 3.50 g/dl Albumin/Globulin Ratio 1.20 Current Medications Medications Dose Sig/Tanya Start Time Status Last (Trade) Ordered Route PRN Stop Time Admin Dose Reason Admin Sodium 500 ml @ Q1H STAT 04/03/18 DC 04/03/18 Chloride 500 mls/hr IV 20:56 21:56 04/03/18 21:55 Procedures/MDM EKG: Rate/Rhythm: [Normal Sinus Rhythm] QRS, ST, T-waves: [No changes consistent w/ acute ischemia] Impression: [No evidence of ischemia or arrhythmia] Chest X-ray 1V Interpreted by me: Soft Tissue: No acute abn ormalities Bones: No acute abnormalities Mediastinum/Cardiac Silhouette/Lungs: [No acute abnormalities] Medical decision makin-year-old male who comes in with lower GI bleed. CT shows no evidence of any acute intra-abdominal process, however given his continued bleeding patient will need to be admitted for possible new colonoscopy. Patient will be admitted to Dr. Reed who is on-call for the patient's IPA to telemetry Departure Diagnosis: Primary Impression: Lower GI bleed Condition: Serious JACQUE JALLOHEros Apr 03, 2018 23:36
--- NOTE | 2018-04-03 23:45 | NUR ---
Pt on unit by wheelchair. Ambulated from wheelchair to bed. Pt is A&Ox4 and able to make needs known. at bedside. Pt currently denies pain. Denies discomfort. No signs of distress. No SOB. Oriented pt to unit and educated pt on use of call light and hourly rounding. Pt currently comfortable in bed. Bed alarm on, call light within reach. Will continue to monitor.
[2018-04-04 00:10] VITALS: Ht 167.6 cm; Wt 71.6 kg
[2018-04-04] MEDS ORDERED: ACETAMINOPHEN 325 MG TAB PO PRN (01:00)
[2018-04-04] MEDS ORDERED: METOPROLOL (XL) 25 MG TAB PO ONE (01:00)
[2018-04-04] MEDS ORDERED: morphine 4 MG/ML VIAL IV PRN (01:00)
[2018-04-04] MEDS: DEXTROSE 5%-0.45% NACL 1,000 ML IV SCH (01:25)
[2018-04-04 02:40] VITALS: BP 139/69; PULSE 64; RESP 18
--- NOTE | 2018-04-04 05:54 | NUR ---
No acute changes during shift. Pt safe and free from injury. Pt A&Ox4 and able to make needs known. All needs anticipated and attended to. Pt slept through the night. Pt currently NPO except medications. No bowel movement through shift. No signs of discomfort or distress. No SOB. Pt currently sleeping comfortably in bed. Bed alarm on, call light within reach. Will continue to monitor.
[2018-04-04] MEDS ORDERED: PANTOPRAZOLE 40 MG INJ IV SCH (06:00)
[2018-04-04 08:20] VITALS: BP 154/71; PULSE 57; RESP 18
[2018-04-04] MEDS ORDERED: METOPROLOL (XL) 25 MG TAB PO SCH (09:00)
[2018-04-04] MEDS ORDERED: BISACODYL (EC) 5 MG TAB PO ONE (10:30)
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
[2018-04-04 15:03] VITALS: BP 139/68; PULSE 60; RESP 18
--- NOTE | 2018-04-04 16:06 | QN ---
Documentation Comment SEEN AND EXAMINED MALIA GRAYSON MD Apr 04, 2018 16:06
--- NOTE | 2018-04-04 16:41 | RADRPT ---
Echocardiogram Report Patient Name: STEPHANIE WORTHY Gender: Male Date: 1935 Study Date: 04-Apr-2018 Talent Partner: Gee Siddiqi [facility] Location: [id number] Ref. Physician: MICHAEL CEE Quality: Adequate Procedures: Transthoracic echocardiogram with complete 2D, M-Mode, and doppler examination. Indications: Pre-op. 2D/M Mode Doppler Measurement Value Normal Ranges Measurement Value Normal Ranges LVIDd 2D 2.8 3.5 - 5.6 cm AV Peak Conrado 1.1 m/sec LVIDs 2D 1.9 2.1 - 4.1 cm AV Peak PG 4.0 mmHg LVPWd 2D 1.6 0.6 - 1.1 cm LVOT Peak Conrado 0.9 m/sec IVSd 2D 1.8 0.6 - 1.1 cm LVOT Peak PG 3.0 mmHg AoR Diam 2D 3.4 2.0 - 3.7 cm MV E Peak Conrado 0.9 m/sec LA/Ao 2D 1 0 - 1 MV A Peak Conrado 1.0 m/sec LA Dimen 2D 3.6 2.3 - 4.0 cm MV E/A 0.9 MV Decel Time 211 msec Lat E` Conrado 0.1 m/sec Lateral E/E` 14.1 Med E` Conrado 0.0 m/sec MV E/A 0.9 TR Peak Conrado 2.7 m/sec TR Peak PG 29.0 mmHg RVSP 32.0 mmHg Findings Left Ventricle: Normal left ventricular systolic function. Normal left ventricular cavity size. Severe concentric left ventricular hypertrophy. Ejection fraction is visually estimated at 60 %. Tissue Doppler/Mitral Doppler indices are consistent with impaired relaxation (Stage I diastolic dysfunction). Right Ventricle: Normal right ventricular size. Normal right ventricular systolic function. Left Atrium: The left atrium is normal in size. Right Atrium: The right atrium is normal in size. Mitral Valve: Mild mitral leaflet calcification. Mild mitral annular calcification. Trace mitral regurgitation. Aortic Valve: No significant aortic stenosis or insufficiency. Aortic cusps appear mildly calcified. Tricuspid Valve: Normal appearance of the tricuspid valve. Estimated peak PA systolic pressure 32 mmHg. There is mild tricuspid regurgitation. Pericardium: Normal pericardium with no significant pericardial effusion. Left pleural effusion seen. Aorta: Normal aortic root. IVC: Normal size and normal respiratory collapse consistent with normal right atrial pressure. Conclusions Normal left ventricular systolic function. Normal left ventricular cavity size. Severe concentric left ventricular hypertrophy. Ejection fraction is visually estimated at 60 %. Tissue Doppler/Mitral Doppler indices are consistent with impaired relaxation (Stage I diastolic dysfunction). Mild mitral leaflet calcification. Mild mitral annular calcification. Trace mitral regurgitation. No significant aortic stenosis or insufficiency. Aortic cusps appear mildly calcified. Normal appearance of the tricuspid valve. Estimated peak PA systolic pressure 32 mmHg. There is mild tricuspid regurgitation. Electronically Signed By: Michael Cee 04-Apr-2018 16:40:44 -0800 Patient Name: STEPHANIE WORTHY Study Date: 04-Apr-2018 [id number]
[2018-04-04] MEDS ORDERED: MAGNESIUM CITRATE 300 ML BTL PO ONE (17:30)
--- NOTE | 2018-04-04 17:44 | CONS ---
DATE OF ADMISSION: 04/03/2018 DATE OF CONSULTATION: 04/04/2018 REASON FOR CONSULTATION: History of stents. Assess management in setting of GI bleed. REQUESTING PHYSICIAN: Dr. Grayson. HISTORY OF PRESENT ILLNESS: Mr. Menchaca is an 82-year-old male with a history of coronary artery diseas e, status post coronary artery bypass graft surgery and additionally status post SUPPORT DBA and stent placem ent in 2016 to circumflex widely patent by catheterization in 2017, hypertension, dyslipidemia, prior abdominal surgeries who presented with a GI bleed. Upon arrival, temperature of 98, blood pressure 130/61, pulse 85, respiratory rate 20, satting 95%. The patient's labs notable for white count of 5. 9, hemoglobin 13, platelet count of 222. Sodium 130, potassium 4.8, creatinine 0.8, BUN 35, AST 40, ALT 37. Troponin negative. INR 0.96. The patient underwent a chest x-ray revealing no evidence of acute cardiopulmonary abnormalities and abdominal pelvic CT revealing no evidence of urolithiasis, ob structive uropathy, diverticulitis, no bowel mass or obstruction, cholelithiasis or vascular calcific ations. The patient's electrocardiogram revealed normal sinus rhythm, rate of 66 with right bundle b ranch block, secondary repolarization abnormalities. The patient subsequently admitted to the floor, and since admit to the floor has had a hemoglobin followed closely. He has been consulted by GI ser vices with plans for endoscopy. Denies chest pain or shortness of breath. PAST MEDICAL HISTORY: As above in HPI. MEDICATIONS CURRENTLY IN HOSPITAL: 1. Dulcolax, 2. MiraLax. 3. Toprol-XL 25 mg at bedtime. 4. Ranexa 5 mg q.12h. 5. Mag citrate 6. IV fluid hydration. 7. Morphine. 8. Tylenol. ALLERGIES: NO KNOWN DRUG ALLERGIES. SOCIAL HISTORY: No current tobacco, ETOH or illicit drug use. FAMILY HISTORY: No history of sudden cardiac or early CAD. REVIEW OF SYSTEMS: As above in HPI. CONSTITUTIONAL: No fevers, chills. PULMONARY: No current shortness of breath. CARDIOVASCULAR: History of stent, history of coronary artery bypass graft. GASTROINTESTINAL: GI bleed. GENITOURINARY: No hematuria, dysuria. MUSCULOSKELETAL: Degenerative joint disease. PSYCHIATRIC: The patient denies depression. NEUROLOGIC: No documented history of CVA. ENDOCRINE: No documented history of diabetes mellitus. PHYSICAL EXAMINATION: VITAL SIGNS: Temperature of 97.9, blood pressure of 139/68, prior to that 154/71, pulse 60, respirat ory rate 18, satting 97%. GENERAL: The patient is alert, awake, no acute distress. NECK: JVP approximately 8 to 9 cm of water. CHEST: Fair air movement throughout. HEART: Regular rate and rhythm. Normal S1, S2, I/ systolic murmur, nondisplaced PMI. ABDOMEN: Positive bowel sounds, soft. EXTREMITIES: No significant pitting edema, 1+ pulses bilateral posterior tibial. LABORATORY DATA: Most recently from today, white count 4.3, hemoglobin 13.5, platelet count of 187. Sodium 136, potassium 4.1, creatinine 0.6, BUN 22. INR 0.96. IMAGING STUDIES: As above in HPI. No further imaging studies for my review at this time. ECG: As above in HPI. No further electrocardiograms for my review at this time. IMPRESSION: 1. History of SUPPORT DBA and stent placement, assess management in the setting of gastrointestinal bleed. 2. Hypertension. 3. Abnormal electrocardiogram, assess for acute coronary syndrome. 4. Right bundle branch block. 5. History of coronary artery bypass graft surgery. 6. Gastrointestinal bleed. 7. Anemia, mild. RECOMMENDATIONS: 1. At this time, would maintain patient on his baseline Ranexa, Toprol and okay to resume baseline a ngiotensin receptor kaye. Follow blood pressure and lungs status closely. 2. Okay to hold the patient's Brilinta and aspirin at this time in the setting of GI bleed in antici pation of upcoming endoscopy. 3. The patient has negative troponin and has no chest pain at this time and most recent echo had rev ealed a preserved EF. The patient is okay to proceed to endoscopy at overall low to moderate cardiov ascular risk. We will continue the patient's Protonix. 4. Would follow the patient's hemoglobin closely and would check a postop EKG and watch closely for signs and symptoms of cardiovascular complications including but not limited to the onset of chest pa in, shortness of breath, uncontrolled cardiac arrhythmias, congestive heart failure or development of chest pain after the patient's procedure. Thank you for allowing me to take part in the care of this patient. I will continue to follow very c losely with you with recommendations to be made as the patient progresses through inpatient hospital clinical course. Dictated By: MICHAEL SHARP/YESSICA Conf#: [id number] DID#: [id number] CC: MALIA GRAYSON; DIRK SIMMONS MD;*EndCC*
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
[2018-04-04] MEDS: PANTOPRAZOLE 40 MG INJ IV SCH (18:10)
[2018-04-04] MEDS ORDERED: POLYETHYLENE GLYCOL 3350 119 GM POWDER PO ONE (18:30)
--- NOTE | 2018-04-04 19:40 | NUR ---
EOSS: Pt hypertensive during shift 130-150s systolic. Dr. Cee and Dr. Ivey aware. Dr. Cee performed a med rec on pt's cardiology meds and EKG, troponin, and echo ordered. IV on R FA infiltrated, new IV placed on L FA. Pt tolerating colonoscopy prep well. Bed alarm on, SCDs on, call light within reach, pt denies further needs. Consent for procedure tomorrow signed. IV fluids on hold per MD until NPO @ midnight.
[2018-04-04 20:00] VITALS: BP 148/68; PULSE 58; RESP 18
[2018-04-04] MEDS: RANOLAZINE (SR) 500 MG TAB PO SCH (20:46)
[2018-04-04 21:37] VITALS: BP 140/76; PULSE 69
[2018-04-04] MEDS: METOPROLOL (XL) 25 MG TAB PO SCH (21:37)
[2018-04-05] VITALS (14 sets, daily range): BP systolic 93–164; BP diastolic 41–78; PULSE 54–76; RESP 17–32
[2018-04-05] MEDS: DEXTROSE 5%-0.45% NACL 1,000 ML IV SCH ×2 (01:00→23:15)
[2018-04-05] MEDS ORDERED: POLYETHYLENE GLYCOL 3350 119 GM POWDER PO ONE (06:00)
[2018-04-05] MEDS: PANTOPRAZOLE 40 MG INJ IV SCH ×2 (06:24→17:18)
--- NOTE | 2018-04-05 06:43 | NUR ---
Patient is alert and oriented x4, denies any pain. Continues on bowel prep, watery brownish/yellowing stool noted. No sediments noted. Miralax and dulcolax administered as ordered. Patient is able to ambulate with standby assistance. Fall precautions in place. Hourly rounding provided. Will endorse to upcoming nurse accordingly.
[2018-04-05] MEDS ORDERED: BISACODYL (EC) 5 MG TAB PO ONE (08:00)
--- NOTE | 2018-04-05 08:00 | NUR ---
MAINTAINED NPO EXCEPT MEDS FOR EGD,COLONOSCOPY TODAY
[2018-04-05] MEDS: LOSARTAN 50 MG TAB PO SCH (08:35)
[2018-04-05] MEDS: RANOLAZINE (SR) 500 MG TAB PO SCH ×2 (08:35→20:29)
[2018-04-05] MEDS ORDERED: NON-FORMULARY/PATIENT OWN MED (Olmesartan Medoxomil (Benicar) 20 MG) PO SCH (09:00)
--- NOTE | 2018-04-05 11:19 | NUR ---
ENTERED ROOM Pt WANTED TO USE THE RESTROOM AND I TOLD HIM I CAN NOT DISCONNECT HIM FROM THE IV, I CAN UNPLUGGED THE IV MACHINE AND I CAN ASSIST HIM TO THE RESTROOM, AND NOT HAVE TO WAIT FOR THE RN. Pt STATED "I CAN WAIT FOR THE RN TO DISCONNECT ME FROM THE IV". I ENCOURAGED HIM THAT I MAY ASSIST HIM, Pt STILL INSISTED ON WAITING FOR THE RN. I NOTIFY THE RN AND CN.
--- NOTE | 2018-04-05 12:00 | NUR ---
ROUNDED WITH PATIENT WITH FAMILY AT BEDSIDE.REINFORCED NEED TO KEEP IVFLUID INFUSING FOR ADEQUATE HYDRATION AND ALSO DUE TO NPO STATUS.VERBALIZES UNDERSTANDING.
--- NOTE | 2018-04-05 12:14 | RADRPT ---
Vent Rate: 56 bpm RR Interval: 0 msec ND Interval: 198 msec QRS Duration: 160 msec QT Interval: 478 msec QTC Interval: 461 msec P-R-T Termo: 63 - -8 - 70 degrees Sinus bradycardia Right bundle branch block Cannot rule out Inferior infarct , age undetermined Abnormal ECG Electronically Signed By: rSinivas Fay [id number]
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
--- NOTE | 2018-04-05 12:39 | NUR ---
LEFT TO GI LAB
[2018-04-05] MEDS ORDERED: PROPOFOL 40 ML ONE (13:10)
--- NOTE | 2018-04-05 14:00 | NUR ---
RECEIVED PATIENT FROM GI LAB POST EGD COLONOSCOPY FULLY AWAKE ON ARRIVAL .V/S STABLE .ON ROOM AIR SATURATING 97%.
[2018-04-05] MEDS ORDERED: FENTAnyl 50 MCG/ML VIAL IV PRN (14:30)
--- NOTE | 2018-04-05 14:42 | NUR ---
TRANSFERRED TO 2E IN STABLE CONDITION .REPORT GIVEN TO MIMI CHARGE NURSE 2E.
--- NOTE | 2018-04-05 15:00 | NUR ---
PATIENT RECEIVED FROM PACU AT 1450 FULLY AWAKE,ALERT.DENIES PAIN AND DISCOMFORTS.VS CHECKED AND RECORDED.INSTRUCTED REGULAR DIET ORDERED BY GI.
--- NOTE | 2018-04-05 15:45 | CONS ---
Date/Time of Note Date/Time of Note DATE: 04/05/18 TIME: 15:42 Assessment/Plan Assessment/Plan Hospital Course IMPRESSION: 1. History of PTCA and stent placement, assess management in the setting of gastrointestinal bleed. 2. Hypertension. 3. Abnormal electrocardiogram, assess for acute coronary syndrome. 4. Right bundle branch block. 5. History of coronary artery bypass graft surgery. 6. Gastrointestinal bleed. 7. Anemia, mild. 8. Bradycardia-stable Recc: -s/p endoscopy, f/u results -Continue BB/Losartan -Continue PPI -Resume brilinta/asa when ok per GI -Continue ranexa -check fasting lipid panel and start statin as necessary Result Diagram: 04/05/18 0517 04/05/18 0517 Results 24hrs Laboratory Tests Test 04/04/18 17:53 04/05/18 01:19 04/05/18 05:17 Troponin I < 0.012 < 0.012 White Blood Count 4.6 L Red Blood Count 4.40 L Hemoglobin 13.9 L Hematocrit 39.2 L Mean Corpuscular Volume 89.1 Mean Corpuscular Hemoglobin 31.6 Mean Corpuscular 35.5 Hemoglobin Concent Red Cell Distribution Width 13.2 Platelet Count 199 Mean Platelet Volume 9.6 Immature Granulocytes % 0.200 Neutrophils % 52.2 Lymphocytes % 28.4 Monocytes % 10.6 Eosinophils % 7.3 H Basophils % 1.3 Nucleated Red Blood Cells % 0.0 Immature Granulocytes # 0.010 Neutrophils # 2.4 Lymphocytes # 1.3 Monocytes # 0.5 Eosinophils # 0.3 Basophils # 0.1 Nucleated Red Blood Cells # 0.0 Sodium Level 132 L Potassium Level 4.5 Chloride Level 95 L Carbon Dioxide Level 30 Anion Gap 7 Blood Urea Nitrogen 12 # Creatinine 0.77 Est Glomerular Filtrat Rate mL/min Glucose Level 100 Calcium Level 9.2 Phosphorus Level 3.8 Magnesium Level 1.9 Consultation Date/Type/Reason Admit Date/Time Apr 03, 2018 at 22:21 Initial Consult Date 04/04/18 Type of Consult cardiology Reason for Consultation h/o PTCA/stent Requesting Provider: MALIA GRAYSON MD Exam/Review of Systems Vital Signs Vitals Vital Signs Date Temp Pulse Resp B/P (MAP) Pulse Ox O2 O2 Flow FiO2 Time Delivery Rate 04/05/18 98.1 57 18 139/68 15:01 (91) 04/05/18 96 Room Air 14:42 Intake and Output 04/04/18 04/04/18 04/05/18 1515:00 23:00 07:00 IntakeIntake Total 1060 ml 1060 ml 200 ml OutputOutput Total 1150 ml 400 ml BalanceBalance -90 ml 660 ml 200 ml Exam Review of Systems: CONSTITUTIONAL: No fevers, chills. PULMONARY: No sob CARDIOVASCULAR: No chest pain/palpitations GASTROINTESTINAL: mild abd pain GENITOURINARY: No hematuria/dysuria. MUSCULOSKELETAL: No myagias/arthalgias. PSYCHIATRIC: The patient denies depression. NEUROLOGIC: No weakness Constitutional: alert Psych: no complaints Head: normocephalic ENMT: mucosa pink and moist Neck: supple, jvd (9 cm water) Respiratory: clear to auscultation Cardiovascular: regular rate and rhythm Gastrointestinal: soft, non-tender Musculoskeletal: muscle tone (normal) Extremities: edema (none) Neurological: other (No focal deficits) Medications Medications Current Medications Dextrose/Sodium Chloride 1,000 ml @ 40 mls/hr Q24H IV Last administered on 04/04/18at 01:25; Admin Dose 40 MLS/HR; Start 04/04/18 at 01:00 Morphine Sulfate (morphine) 2 mg Q6H PRN IV SEVERE PAIN LEVEL 7-10; Start 04/04/18 at 01:00 Acetaminophen (Tylenol Tab) 650 mg Q6H PRN PO MILD PAIN(1-3)OR ELEVATED TEMP; Start 04/04/18 at 01:00 Metoprolol Succinate (Toprol Xl) 25 mg HS PO Last administered on 04/04/18at 21:37; Admin Dose 25 MG; Start 04/04/18 at 21:00 Pantoprazole (Protonix Iv) 40 mg 0600,1800 IV Last administered on 04/05/18at 06:24; Admin Dose 40 MG; Start 04/04/18 at 18:00 Ranolazine (Ranexa) 500 mg Q12 PO Last administered on 04/05/18at 08:35; Admin Dose 500 MG; Start 04/04/18 at 21:00 Losartan Potassium (Cozaar) 100 mg DAILY PO Last administered on 04/05/18at 08:35; Admin Dose 100 MG; Start 04/05/18 at 09:00 Fentanyl (Sublimaze) 25 mcg PACU ORDER PRN IV PAIN LEVEL 6-10; Start 04/05/18 at 14:30; Stop 04/05/18 at 20:00 MICHAEL WEINER Apr 05, 2018 15:45
--- NOTE | 2018-04-05 18:47 | NUR ---
AA,ORIENTED X4,POST EGD AND COLONOSCOPY TODAY WITH FINDINGS PER REPORT GASTRITIS.REGULAR DIET RESUMED POST PROCEDURE , TOLERATED WELL.NO REPORT OF BLOODY STOOL THIS SHIFT.PATIENT TO CONTINUE WITH TREATMENT PLAN.
[2018-04-05] MEDS: METOPROLOL (XL) 25 MG TAB PO SCH (20:30)
[2018-04-06 02:03] VITALS: BP 131/71; PULSE 58; RESP 18
[2018-04-06] MEDS: PANTOPRAZOLE 40 MG INJ IV SCH (05:15)
--- NOTE | 2018-04-06 06:33 | NUR ---
End of shift Report: Sleeping on bed in comfortable position. No sob.No resp distress. Afebrile. For Small bowel Xray kept pt NPO after midnight. No BM overnight. Needs attended and anticipated. No acute event overnight. Call light within reach. Will continue to monitor pt. Will endorse accordingly.
[2018-04-06 08:35] VITALS: BP 117/62; PULSE 73; RESP 20
[2018-04-06] MEDS ORDERED: DIATR MEGLU/DIATRIZOATE SODIUM 120 ML BTL ONE (09:52)
--- NOTE | 2018-04-06 10:00 | NUR ---
Patient down to Radiology at 1000. Has been NPO since midnight. Will give PO meds when he returns
[2018-04-06] MEDS: LOSARTAN 50 MG TAB PO SCH (12:48)
[2018-04-06] MEDS: RANOLAZINE (SR) 500 MG TAB PO SCH (12:48)
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
[2018-04-06] MEDS ORDERED: TICAGRELOR 90 MG TABLET PO SCH (13:30)
[2018-04-06] MEDS ORDERED: ASPIRIN 81 MG TAB PO SCH (13:30)
--- NOTE | 2018-04-06 14:03 | PDOCDIS ---
Discharge Instructions DIAGNOSIS Discharge Diagnosis hemorrhoidal bleed CONDITION [id number] Patient Condition: [id number] Stable HOME CARE INSTRUCTIONS: [id number] Special Diet: [id number] regular ACTIVITY: [id number] Activity Restrictions: [id number] Slowly Increase Activity Rest between Activity Avoid heavy lifting No Sexual Activity FOLLOW UP/APPOINTMENTS Follow-up Plan PCP 1 week surgery if desire to remove hemorrhoids. SCHOOL/WORK RELEASE May return to School/Work with: No Restrictions USAMA BORJA Apr 06, 2018 14:03
[2018-04-06] MEDS ORDERED: PANT40TA4 PO (14:06)
[2018-04-06] MEDS ORDERED: HYDR26CR PR (14:06)
[2018-04-06] MEDS ORDERED: DOCU-144 PO (14:06)
[2018-04-06] MEDS ORDERED: LOSA50TA2 PO (14:06)
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
[2018-04-06 15:00] VITALS: BP 112/66; PULSE 80; RESP 18
--- NOTE | 2018-04-06 16:04 | CONS ---
Date/Time of Note Date/Time of Note DATE: 04/06/18 TIME: 16:02 Assessment/Plan Assessment/Plan Hospital Course IMPRESSION: 1. History of PTCA and stent placement, assess management in the setting of gastrointestinal bleed. 2. Hypertension. 3. Abnormal electrocardiogram, assess for acute coronary syndrome. 4. Right bundle branch block. 5. History of coronary artery bypass graft surgery. 6. Gastrointestinal bleed. s/p endoscopy with findings of gastritis 7. Anemia, mild. 8. Bradycardia-stable Recc: -s/p endoscopy, f/u results -Continue BB/Losartan -Continue PPI -Resume brilinta/asa when ok per GI -Continue ranexa -ok for d/c from cardiac standpoint Result Diagram: 04/06/18 0545 04/06/18 0545 Results 24hrs Laboratory Tests Test 04/06/18 05:45 White Blood Count 4.6 L Red Blood Count 4.40 L Hemoglobin 13.9 L Hematocrit 39.1 L Mean Corpuscular Volume 88.9 Mean Corpuscular Hemoglobin 31.6 Mean Corpuscular Hemoglobin Concent 35.5 Red Cell Distribution Width 12.8 Platelet Count 207 Mean Platelet Volume 9.3 Immature Granulocytes % 0.200 Neutrophils % 55.1 Lymphocytes % 26.1 Monocytes % 10.8 Eosinophils % 6.7 Basophils % 1.1 Nucleated Red Blood Cells % 0.0 Immature Granulocytes # 0.010 Neutrophils # 2.6 Lymphocytes # 1.2 Monocytes # 0.5 Eosinophils # 0.3 Basophils # 0.1 Nucleated Red Blood Cells # 0.0 Sodium Level 135 Potassium Level 4.0 Chloride Level 97 Carbon Dioxide Level 27 Anion Gap 11 Blood Urea Nitrogen 14 Creatinine 0.68 Est Glomerular Filtrat Rate mL/min Glucose Level 106 Calcium Level 9.3 Triglycerides Level 69 Cholesterol Level 125 LDL Cholesterol, Calculated 71 HDL Cholesterol 40 Cholesterol/HDL Ratio 3.1 Consultation Date/Type/Reason Admit Date/Time Apr 03, 2018 at 22:21 Initial Consult Date 04/04/18 Type of Consult cardiology Reason for Consultation h/o stent Requesting Provider: MALIA GRAYSON MD Exam/Review of Systems Vital Signs Vitals Vital Signs Date Temp Pulse Resp B/P (MAP) Pulse Ox O2 O2 Flow FiO2 Time Delivery Rate 04/06/18 97.9 73 20 117/62 99 Room Air 08:35 (80) Intake and Output 04/05/18 04/05/18 04/06/18 1515:00 23:00 07:00 IntakeIntake Total 220 ml 690 ml 360 ml OutputOutput Total 2300 ml 250 ml 250 ml BalanceBalance -2080 ml 440 ml 110 ml Exam Review of Systems: CONSTITUTIONAL: No fevers, chills. PULMONARY: No sob CARDIOVASCULAR: No chest pain/palpitations GASTROINTESTINAL: abd pain GENITOURINARY: No hematuria/dysuria. MUSCULOSKELETAL: No myagias/arthalgias. PSYCHIATRIC: The patient denies depression. NEUROLOGIC: No weakness Constitutional: alert Psych: no complaints Head: normocephalic ENMT: mucosa pink and moist Neck: supple, jvd (9 cm water) Respiratory: clear to auscultation Cardiovascular: regular rate and rhythm Gastrointestinal: soft, non-tender Musculoskeletal: muscle tone (normal) Extremities: edema (none) Neurological: other (No focal deficits) Medications Medications Current Medications Morphine Sulfate (morphine) 2 mg Q6H PRN IV SEVERE PAIN LEVEL 7-10; Start 04/04/18 at 01:00 Acetaminophen (Tylenol Tab) 650 mg Q6H PRN PO MILD PAIN(1-3)OR ELEVATED TEMP; Start 04/04/18 at 01:00 Metoprolol Succinate (Toprol Xl) 25 mg HS PO Last administered on 04/05/18at 20:30; Admin Dose 25 MG; Start 04/04/18 at 21:00 Ranolazine (Ranexa) 500 mg Q12 PO Last administered on 04/06/18at 12:48; Admin Dose 500 MG; Start 04/04/18 at 21:00 Losartan Potassium (Cozaar) 100 mg DAILY PO Last administered on 04/06/18at 12:48; Admin Dose 100 MG; Start 04/05/18 at 09:00 Ticagrelor (Brilinta) 90 mg BID PO Last administered on 04/06/18at 15:29; Admin Dose 90 MG; Start 04/06/18 at 13:30 Pantoprazole (Protonix Tab) 40 mg BID@,18 PO ; Start 04/06/18 at 18:00 Aspirin (Aspirin) 81 mg DAILY PO Last administered on 04/06/18at 15:30; Admin Dose 81 MG; Start 04/06/18 at 13:30 MICHAEL WEINER Apr 06, 2018 16:04
--- NOTE | 2018-04-06 17:54 | NUR ---
Patient is cleared for D/C. RN educated pt on meds to take at home. Dr. Cee arrived to see pt at this time and told patient to continue home Benicar rather than Losartan as prescribed. Pt and verbalized understanding of teaching and denied having further questions. Patient was given referral to see tow driver outpatient as well. IV removed with tip intact. All belongings accounted for and returned to patient.
[2018-04-06] MEDS ORDERED: PANTOPRAZOLE (EC) 40 MG TAB PO SCH (18:00)
== END 2018-04-06 18:45 | disposition home or self-care (01) | DRG 394 ==
LOC: E/R 16:41 → PP2 22:21
PROVIDERS: ADMIT Internal Medicine Nephrology; ATTEND Internal Medicine Nephrology
PROC: 0DB68ZX Excision of Stomach, Via Natural or Artificial Opening Endoscopic, Diagnostic (ICD-10-PCS; principal; 2018-04-05 13:00)
PROC: 0DJD8ZZ Inspection of Lower Intestinal Tract, Via Natural or Artificial Opening Endoscopic (ICD-10-PCS; 2018-04-05 13:00)
DX: K64.8 Other hemorrhoids (principal); K92.2 Gastrointestinal hemorrhage, unspecified; E87.1 Hypo-osmolality and hyponatremia; K29.00 Acute gastritis without bleeding; E78.5 Hyperlipidemia, unspecified; I37.1 Nonrheumatic pulmonary valve insufficiency; I07.1 Rheumatic tricuspid insufficiency; I25.2 Old myocardial infarction; I25.10 Atherosclerotic heart disease of native coronary artery without angina pectoris; K21.9 Gastro-esophageal reflux disease without esophagitis; I10 Essential (primary) hypertension; I45.10 Unspecified right bundle-branch block; D64.9 Anemia, unspecified; R00.1 Bradycardia, unspecified; Z86.010 Personal history of colon polyps; Z95.1 Presence of aortocoronary bypass graft; Z79.82 Long term (current) use of aspirin; Z95.5 Presence of coronary angioplasty implant and graft; Z86.73 Personal history of transient ischemic attack (TIA), and cerebral infarction without residual deficits
CPT/HCPCS: 36415; 71045; 74176; 74250; 80048; 80053; 80061; 83735; 84100; 84484; 85025; 85610; 85730; 86850; 86900; 86901; 88305; 88312; 93005; 93306; C9113; J7040; J7042